=== PATIENT | female | born 1935 | race Caucasian/White ===

== ENCOUNTER 2016-09-29 14:47 | Emergency (ER) | payer MEDICARE, MEDICAID ==
[2016-09-29 15:27] VITALS: BP 152/69
--- NOTE | 2016-10-19 18:09 | EDM.PDOC ---
Scribed by Natalie Herr 10/19/16 [id number] for Tushar Willis MD ED HPI RENAL/ - General Chief Complaint: Genitourinary Problem Stated Complaint: ? UTI Time Seen by Provider: 09/29/16 15:30 Source of Information: Reports: Patient, RN notes reviewed - History of Present Illness INITIAL COMMENTS - FREE TEXT/NARRATIVE: Painful urination x3 days. Complained of chills but no nausea. Denied fever and flank pain. Location: Reports: flank Quality: Reports: ache Severity: moderate - Related Data Allergies/ADRs: Allergies Allergy/AdvReac Type Severity Reaction Status Date / Time cefuroxime Allergy Abdominal Verified 09/29/16 15:48 Pain cephalexin [From Keflex] Allergy Abdominal Verified 09/29/16 15:48 Pain fentanyl Allergy Itching Verified 09/29/16 15:48 Home Meds: Home Meds Linagliptin/Metformin Hcl [Jentadueto 2.5 mg-1000 mg Tab] 1.25 - 500 each PO BEDTIME 03/30/16 [History] Escitalopram [Lexapro] 10 mg PO DAILY 06/19/16 [History] traMADol HCl [Ultram] 50 mg PO ASDIRECTED PRN 06/19/16 [History] Acetaminophen [Non-Aspirin] 325 - 650 mg PO Q6HR PRN 09/13/16 [History] Aspirin [Adult Low Dose Aspirin EC] 81 mg PO DAILY 09/13/16 [History] Clopidogrel [Plavix] 75 mg PO DAILY 09/13/16 [History] Ferrous Sulfate 325 mg PO BID 09/13/16 [History] Lisinopril 5 mg PO DAILY 09/13/16 [History] Metoprolol Succinate [Toprol XL] 75 mg PO DAILY 09/13/16 [History] Pantoprazole [Protonix] 40 mg PO DAILY 09/13/16 [History] Sennosides/Docusate Sodium [Senna Laxative Tablet] 1 tab PO DAILY 09/13/16 [ History] amLODIPine [Norvasc] 10 mg PO DAILY 09/13/16 [History] atorvaSTATin [Lipitor] 20 mg PO BEDTIME 09/13/16 [History] levETIRAcetam [Keppra] 500 mg PO BID 09/13/16 [History] Past Medical History HEENT History: Reports: Impaired vision Cardiovascular History: Reports: CAD, High cholesterol, Hypertension, [place] Gastrointestinal History: Reports: GERD Endocrine/Metabolic History: Reports: Diabetes, type II Hematologic History: Reports: Other (see below) (Left Port Wine Stain) - Past Surgical History HEENT Surgical History: Reports: Cataract surgery Cardiovascular Surgical History: Reports: Carotid stents GI Surgical History: Reports: Appendectomy, Cholecystectomy Female Surgical History: Reports: Hysterectomy Social & Family History - Family History Family Medical History: Noncontributory - Tobacco Use Smoking Status *Q: Never Smoker Used Tobacco, but Quit: Yes Month Tobacco Last Used: 1982 Second Hand Smoke Exposure: No - Caffeine Use Caffeine Use: Reports: Coffee, Tea - Recreational Drug Use Recreational Drug Use: No - Living Situation & Occupation Occupation: retired ED ROS GENERAL - Review of Systems Review Of Systems: ROS reveals no pertinent complaints other than HPI. ED EXAM, RENAL/ - Physical Exam Exam: See Below Exam Limited By: No limitations General Appearance: alert, WD/WN, no apparent distress Head: atraumatic, normocephalic Neck: normal inspection, supple, non-tender, full range of motion Respiratory/Chest: no respiratory distress, lungs clear, normal breath sounds, no accessory muscle use, chest non-tender Cardiovascular: regular rate, rhythm, bradycardia GI/Abdominal: normal bowel sounds, soft, no distention, tender (suprapubic region.). No: guarding, rigid, rebound Back Exam: normal inspection, full range of motion. No: CVA tenderness (L), CVA tenderness (R) Extremities: normal inspection Neurological: alert, oriented, CN II-XII intact, normal cognition, normal gait, no motor/sensory deficits Psychiatric: normal affect, normal mood Skin Exam: Warm, Dry, Intact, Normal color, No rash Course - Vital Signs Last Recorded V/S: Last Vital Signs Temp 36.8 C 09/29/16 15:23 Pulse 59 L 09/29/16 15:23 Resp 20 09/29/16 15:23 BP 152/69 H 09/29/16 15:23 Pulse Ox 100 09/29/16 15:23 - Orders/Labs/Meds Labs: Laboratory Tests 09/29/16 Range/Units 15:16 Urine Color Dark yellow (YELLOW) Urine Appearance Cloudy (CLEAR) Urine pH 5.5 (5.0-9.0) Ur Specific [place] 1.015 (1.005-1.030) Urine Protein 30 H (NEGATIVE) Urine Glucose (UA) Negative (NEGATIVE) Urine Ketones Negative (NEGATIVE) Urine Occult Blood Large H (NEGATIVE) Urine Nitrite Negative (NEGATIVE) Urine Bilirubin Negative (NEGATIVE) Urine Urobilinogen 0.2 (0.2-1.0) mg/dL Ur Leukocyte Esterase Moderate H (NEGATIVE) Urine RBC Packed H /HPF Urine WBC Semi-packed H (0-5/HPF) /HPF Ur Epithelial Cells Rare /HPF Urine Bacteria Moderate H (0-FEW/HPF) /HPF Departure - Departure Time of Disposition: 16:27 Disposition: Home, Self-Care 01 Condition: good Clinical Impression: UTI (urinary tract infection), Pyelonephritis Instructions: Pyelonephritis, Adult, [id number] Referrals: PCP,None [Primary Care Provider] - Forms: ED Department Discharge Additional Instructions: Cipro 500mg. Drink plenty of fluid. Follow up in clinic in 7-10 days for urine recheck. Return to ER if worse at any time. I have read and agree with the documentation that has been completed regarding this visit. By signing this record, I attest that the documentation was completed in my physical presence and is an accurate record of the encounter.
== END 2016-09-29 16:30 | disposition home or self-care (01) ==
LOC: DL.ED 14:47
DX: N12 Tubulo-interstitial nephritis, not specified as acute or chronic (principal); N39.0 Urinary tract infection, site not specified; I25.10 Atherosclerotic heart disease of native coronary artery without angina pectoris; E78.00 Pure hypercholesterolemia, unspecified; I25.2 Old myocardial infarction; I10 Essential (primary) hypertension; K21.9 Gastro-esophageal reflux disease without esophagitis; E11.9 Type 2 diabetes mellitus without complications; Z90.49 Acquired absence of other specified parts of digestive tract; Z90.710 Acquired absence of both cervix and uterus; Z88.8 Allergy status to other drugs, medicaments and biological substances; Z79.82 Long term (current) use of aspirin; Z79.899 Other long term (current) drug therapy
CPT/HCPCS: 81001; 87086; 87088; 87186; 99283; 99284

== ENCOUNTER 2017-08-18 15:58 | Emergency (ER) | payer MEDICAID, MEDICARE, OTHER ==
[2017-08-18] MEDS ORDERED: Nitrofurantoin Monohydrate/Macrocrystalline 100 MG Cap PO ONE (15:59)
[2017-08-18 16:12] VITALS: BP 140/65
--- NOTE | 2017-08-18 16:51 | EDM.PDOC ---
ED HPI GENERAL MEDICAL PROBLEM - General Chief Complaint: Genitourinary Problem Stated Complaint: INFECTION [id number] Time Seen by Provider: 08/18/17 16:39 Source of Information: Reports: Patient, RN, RN Notes Reviewed History Limitations: Reports: No Limitations - History of Present Illness INITIAL COMMENTS - FREE TEXT/NARRATIVE: Patient presents to the ER with complaint of frequency, urgency, burning and incontinence at times.Symptoms began last week on Saturday or . She has hadno fever, chills, nausea, vomiting, diarrhea, chest pain or shortness of breath. Duration: Constant Quality: Reports: Ache Severity: Moderate Improves with: Reports: None Worsens with: Reports: None Associated Symptoms: Reports: No Other Symptoms - Related Data Allergies Allergy/AdvReac Type Severity Reaction Status Date / Time cefuroxime Allergy Abdominal Verified 08/18/17 16:13 Pain cephalexin [From Keflex] Allergy Abdominal Verified 08/18/17 16:13 Pain fentanyl Allergy Itching Verified 08/18/17 16:13 latex Allergy Redness Verified 08/18/17 16:13 peanut Allergy Rash Verified 08/18/17 16:13 Home Meds: Home Meds Escitalopram [Lexapro] 10 mg PO DAILY 06/19/16 [History] Acetaminophen [Non-Aspirin] 325 - 650 mg PO Q6HR PRN 09/13/16 [History] Aspirin [Adult Low Dose Aspirin EC] 81 mg PO DAILY 09/13/16 [History] Clopidogrel [Plavix] 75 mg PO DAILY 09/13/16 [History] Lisinopril 5 mg PO DAILY 09/13/16 [History] Metoprolol Succinate [Toprol XL] 75 mg PO DAILY 09/13/16 [History] Pantoprazole [ProTONIX] 40 mg PO DAILY 09/13/16 [History] amLODIPine [Norvasc] 10 mg PO DAILY 09/13/16 [History] atorvaSTATin [Lipitor] 20 mg PO BEDTIME 09/13/16 [History] Hydrochlorothiazide [Hydrochlorothiazide] 25 mg PO DAILY 08/18/17 [History] metFORMIN HCl [Metformin HCl] 500 mg PO DAILY 08/18/17 [History] Past Medical History HEENT History: Reports: Impaired Vision Other HEENT History: wears glasses Cardiovascular History: Reports: CAD, High Cholesterol, Hypertension, [place] Respiratory History: Reports: None Gastrointestinal History: Reports: GERD Genitourinary History: Reports: None LE[employer]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: 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 Musculoskeletal History: Reports: None Neurological History: Reports: None Psychiatric History: Reports: None Endocrine/Metabolic History: Reports: Diabetes, Type II Hematologic History: Reports: Anemia, Blood Transfusion(s) Immunologic History: Reports: None Oncologic (Cancer) History: Reports: None Dermatologic History: Reports: None - Infectious Disease History Infectious Disease History: Reports: Chicken Pox, Measles, Mumps - Past Surgical History HEENT Surgical History: Reports: Cataract Surgery Cardiovascular Surgical History: Reports: Carotid Stents GI Surgical History: Reports: Appendectomy, Cholecystectomy Female Surgical History: Reports: Hysterectomy Social & Family History - Tobacco Use Smoking Status *Q: Never Smoker Used Tobacco, but Quit: Yes Month Tobacco Last Used: 1982 Second Hand Smoke Exposure: No - Caffeine Use Caffeine Use: Reports: Coffee - Recreational Drug Use Recreational Drug Use: No - Living Situation & Occupation Occupation: Retired ED ROS GENERAL - Review of Systems Review Of Systems: ROS reveals no pertinent complaints other than HPI. ED EXAM, RENAL/ - Physical Exam Exam: See Below Exam Limited By: No Limitations General Appearance: Alert, WD/WN, No Apparent Distress Eye Exam: Bilateral Eye: Normal Inspection Ears: Normal External Exam, Normal Canal, Hearing Grossly Normal, Normal TMs Nose: Normal Inspection, Normal Mucosa, No Blood Throat/Mouth: Other Head: Other (Face has a port wine stain left side of face. Hematoma appearance left upper lip from dionte.) Neck: Normal Inspection, Supple, Non-Tender, Full Range of Motion Respiratory/Chest: No Respiratory Distress, Lungs Clear, Normal Breath Sounds, No Accessory Muscle Use, Chest Non-Tender Cardiovascular: Normal Peripheral Pulses, Regular Rate, Rhythm, No Edema, No Gallop, No JVD, No Murmur, No Rub GI/Abdominal: Normal Bowel Sounds, Soft, Non-Tender, No Organomegaly, No Distention, No Abnormal Bruit, No Mass (Female) Exam: Deferred Rectal (Female) Exam: Deferred Back Exam: Normal Inspection, Full Range of Motion, NT Extremities: Normal Inspection, Normal Range of Motion, Non-Tender, Normal Capillary Refill, No Pedal Edema Neurological: Alert, Oriented, CN II-XII Intact, Normal Cognition, Normal Gait, Normal Reflexes, No Motor/Sensory Deficits Psychiatric: Normal Affect, Normal Mood Skin Exam: Other (see head exam.) Lymphatic: No Adenopathy Course - Vital Signs Last Recorded V/S: Last Vital Signs Temp 98.1 F 08/18/17 16:08 Pulse 66 08/18/17 16:08 Resp 16 08/18/17 16:08 BP 140/65 08/18/17 16:08 Pulse Ox 98 08/18/17 16:08 - Orders/Labs/Meds Orders: Active Orders 24 hr Category Date Time Status CULTURE URINE [RM] Stat Lab 08/18/17 16:25 Received Labs: Laboratory Tests 08/18/17 Range/Units 16:25 Urine Color Yellow (YELLOW) Urine Appearance Slightly cloudy (CLEAR) Urine pH 5.5 (5.0-9.0) Ur Specific [place] 1.010 (1.005-1.030) Urine Protein Negative (NEGATIVE) Urine Glucose (UA) Negative (NEGATIVE) Urine Ketones Negative (NEGATIVE) Urine Occult Blood Trace-lysed H (NEGATIVE) Urine Nitrite Negative (NEGATIVE) Urine Bilirubin Negative (NEGATIVE) Urine Urobilinogen 0.2 (0.2-1.0) mg/dL Ur Leukocyte Esterase Small H (NEGATIVE) Urine RBC 0-5 /HPF Urine WBC 10-20 H (0-5/HPF) /HPF Ur Epithelial Cells Occasional /HPF Urine Bacteria Few (0-FEW/HPF) /HPF Urine Mucus Not seen /LPF Meds: Medications Discontinued Medications Generic Name Dose Route Start Last Admin Trade Name Freq PRN Reason Stop Dose Admin Nitrofurantoin Macrocrystals Confirm 08/18/17 17:14 Macrobid Administered 08/18/17 17:15 Dose 300 mg .ROUTE .STK-MED ONE Departure - Departure Time of Disposition: 17:08 Disposition: Home, Self-Care 01 Condition: Fair Clinical Impression: UTI, Urinary tract infectious disease - Discharge Information Instructions: Urinary Tract Infection, Adult, [id number] Forms: ED Department Discharge Additional Instructions: RX: Macrobid Increase water intake Follow up with your primary care facility next week. - My Orders Last 24 Hours: My Active Orders 08/18/17 16:25 CULTURE URINE [RM] Stat - Assessment/Plan Last 24 Hours: My Active Orders 08/18/17 16:25 CULTURE URINE [RM] Stat
[2017-08-18] MEDS ORDERED: Nitrofurantoin Monohydrate/Macrocrystalline 100 MG Cap ONE (17:14)
== END 2017-08-18 17:32 | disposition home or self-care (01) ==
LOC: DL.ED 15:58
DX: N39.0 Urinary tract infection, site not specified (principal); E78.00 Pure hypercholesterolemia, unspecified; E11.9 Type 2 diabetes mellitus without complications; Z88.1 Allergy status to other antibiotic agents; Z91.040 Latex allergy status; Z91.010 Allergy to peanuts; Z79.82 Long term (current) use of aspirin; Z79.84 Long term (current) use of oral hypoglycemic drugs; Z79.899 Other long term (current) drug therapy
CPT/HCPCS: 81001; 87086; 87088; 87186; 99283; A9270-GY

== ENCOUNTER 2018-10-26 12:53 | Emergency (ER) | payer MEDICARE, SELFPAY ==
[2018-10-26 13:02] VITALS: BP 113/46
[2018-10-26] MEDS ORDERED: Albuterol/Ipratropium 3.0-0.5 MG/3 ML Neb Soln NEB ONE (13:26)
--- NOTE | 2018-10-26 13:43 | EDM.PDOC ---
ED HPI GENERAL MEDICAL PROBLEM - General Chief Complaint: Respiratory Problem Stated Complaint: SICK [id number] Time Seen by Provider: 10/26/18 13:40 Source of Information: Reports: Patient, Family History Limitations: Reports: No Limitations - History of Present Illness INITIAL COMMENTS - FREE TEXT/NARRATIVE: been Dx with pneumonia 3-1st taking levaquin not better still coughing not feeling good, appetite ok, sweating all the time. - Related Data Allergies Allergy/AdvReac Type Severity Reaction Status Date / Time adhesive tape Allergy Rash Verified 10/26/18 12:58 cefuroxime Allergy Abdominal Verified 10/26/18 12:58 Pain celecoxib [From Celebrex] Allergy Swollen Verified 10/26/18 12:58 Tongue cephalexin [From Keflex] Allergy Abdominal Verified 10/26/18 12:58 Pain cetirizine [From Zyrtec] Allergy Abdominal Verified 10/26/18 12:58 Pain fentanyl Allergy Itching Verified 10/26/18 12:58 latex Allergy Redness Verified 10/26/18 12:58 peanut Allergy Rash Verified 10/26/18 12:58 pneumococcal vaccine Allergy Abdominal Verified 10/26/18 12:58 [From Pneumovax 23] Pain rofecoxib [From Vioxx] Allergy Abdominal Verified 10/26/18 12:58 Pain strawberry Allergy Itching Verified 10/26/18 12:58 Home Meds: Home Meds Escitalopram [Lexapro] 10 mg PO DAILY 06/19/16 [History] Acetaminophen [Non-Aspirin] 325 - 650 mg PO Q6HR PRN 09/13/16 [History] Aspirin [Adult Low Dose Aspirin EC] 81 mg PO DAILY 09/13/16 [History] Clopidogrel [Plavix] 75 mg PO DAILY 09/13/16 [History] Metoprolol Succinate [Toprol XL] 75 mg PO DAILY 09/13/16 [History] Pantoprazole [ProTONIX] 40 mg PO ACBREAKFAST 09/13/16 [History] amLODIPine [Norvasc] 10 mg PO DAILY 09/13/16 [History] hydroCHLOROthiazide [Hydrochlorothiazide] 25 mg PO DAILY 08/18/17 [History] metFORMIN HCl [Metformin HCl] 500 mg PO ACBREAKFAST 08/18/17 [History] Lisinopril 20 mg PO DAILY 06/09/18 [History] Loratadine 10 mg PO DAILY PRN 06/09/18 [History] atorvaSTATin [Lipitor] 40 mg PO DAILY 06/09/18 [History] diphenhydrAMINE [Benadryl] 25 mg PO BEDTIME 06/09/18 [History] Levofloxacin 750 mg PO DAILY 10/26/18 [History] Past Medical History HEENT History: Reports: Impaired Vision Other HEENT History: wears glasses Cardiovascular History: Reports: CAD, High Cholesterol, Hypertension, [place] Respiratory History: Reports: None Gastrointestinal History: Reports: GERD Genitourinary History: Reports: None 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: 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: 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 Musculoskeletal History: Reports: None Neurological History: Reports: None Psychiatric History: Reports: None Endocrine/Metabolic History: Reports: Diabetes, Type II Hematologic History: Reports: Anemia, Blood Transfusion(s) Immunologic History: Reports: None Oncologic (Cancer) History: Reports: None Dermatologic History: Reports: None - Infectious Disease History Infectious Disease History: Reports: Chicken Pox, Measles, Mumps - Past Surgical History HEENT Surgical History: Reports: Cataract Surgery Cardiovascular Surgical History: Reports: Carotid Stents GI Surgical History: Reports: Appendectomy, Cholecystectomy Female Surgical History: Reports: Hysterectomy Musculoskeletal Surgical History: Reports: Hip Replacement Social & Family History - Tobacco Use Smoking Status *Q: Former Smoker Used Tobacco, but Quit: Yes Month/Year Tobacco Last Used: 1979 - Caffeine Use Caffeine Use: Reports: Coffee - Recreational Drug Use Recreational Drug Use: No - Living Situation & Occupation Occupation: Retired ED ROS GENERAL - Review of Systems Review Of Systems: ROS reveals no pertinent complaints other than HPI. ED EXAM, GENERAL - Physical Exam Exam: See Below Exam Limited By: No Limitations General Appearance: Alert, WD/WN, Mild Distress, Other (discomfort) Ears: Hearing Grossly Normal Throat/Mouth: Normal Voice, No Airway Compromise Head: Atraumatic Neck: Non-Tender Respiratory/Chest: Decreased Breath Sounds, Rales, Rhonchi Cardiovascular: Regular Rate, Rhythm GI/Abdominal: Soft, Non-Tender Neurological: Alert, Oriented, Normal Cognition, Normal Gait, No Motor/Sensory Deficits Psychiatric: Normal Affect, Normal Mood Skin Exam: Warm, Dry, Normal Color Lymphatic: No Adenopathy Course - Vital Signs Last Recorded V/S: Last Vital Signs Temp 36.6 C 10/26/18 12:57 Pulse 74 10/26/18 13:26 Resp 18 10/26/18 12:57 BP 113/46 L 10/26/18 12:57 Pulse Ox 95 10/26/18 12:57 - Orders/Labs/Meds Orders: Active Orders 24 hr Category Date Time Status RT Aerosol Therapy [RC] ASDIRECTED Care 10/26/18 13:26 Active CULTURE BLOOD [BC] Stat Lab 10/26/18 13:50 Received Labs: Laboratory Tests 10/26/18 10/26/18 10/26/18 Range/Units 13:50 13:50 13:50 WBC 9.0 (5.0-10.0) 10^3/uL RBC 4.34 (4.2-5.4) 10^6/uL Hgb 12.2 (12.0-16.0) g/dL Hct 36.3 L (37.0-47.0) % MCV 83.6 (80-100) fL MCH 28.1 (27.0-34.0) pg MCHC 33.6 (33.0-35.0) g/dL Plt Count 536 H (150-450) 10^3/uL Neut % (Auto) 82.6 H (42.2-75.2) % Lymph % (Auto) 7.2 L (20.5-50.1) % [place]uckolls % (Auto) 6.3 (2-8) % Eos % (Auto) 3.3 H (1.0-3.0) % Baso % (Auto) 0.6 (0.0-1.0) % Sodium 127 L (135-145) mmol/L Potassium 3.3 L (3.6-5.0) mmol/L Chloride 91 L (101-111) mmol/L Carbon Dioxide 23.0 (21.0-31.0) mmol/L Anion Gap 16.3 BUN 18 (7-18) mg/dL Creatinine 1.1 (0.6-1.3) mg/dL Est Cr Clr Drug Dosing 37.02 mL/min Estimated GFR (MDRD) 47 BUN/Creatinine Ratio 16.36 Glucose 153 H (74-105) mg/dL Lactic Acid 1.1 (0.5-2.2) mmol/L Calcium 8.5 (8.4-10.2) mg/dl Total Bilirubin 0.8 (0.2-1.0) mg/dL AST 17 (10-42) IU/L ALT 9 L (10-60) IU/L Alkaline Phosphatase 69 (42-121) IU/L B-Natriuretic Peptide 67 (0-100) pg/ml Total Protein 7.0 (6.7-8.2) g/dl Albumin 3.1 L (3.2-5.5) g/dl Globulin 3.9 Albumin/Globulin Ratio 0.79 Meds: Medications Discontinued Medications Generic Name Dose Route Start Last Admin Trade Name Oz PRN Reason Stop Dose Admin Albuterol/Ipratropium 3 ml 10/26/18 13:26 10/26/18 13:41 Duoneb 3.0-0.5 Mg/3 Ml NEB 10/26/18 13:27 3 ml ONETIME ONE Administration - Re-Assessments/Exams Free Text/Narrative Re-Assessment/Exam: 10/26/18 15:13 results discussed with pt and daughter. pt states feels much better s/p neb and prefers home than admit. Departure - Departure Time of Disposition: 15:14 Disposition: Home, Self-Care 01 Condition: Fair Clinical Impression: Bronchospasm Pneumonia Qualifiers: Pneumonia type: due to unspecified organism Laterality: right Lung location: lower lobe of lung Qualified Code(s): J18.1 - Lobar pneumonia, unspecified organism - Discharge Information Instructions: Community-Acquired Pneumonia, Adult, [id number] Forms: ED Department Discharge Additional Instructions: 1) rest as much as possible 2) don't sleep flat at night 3) drink lots of liquids 4) recheck if there is any change or concern rx given; albuterol 2.5mg solutio tid prn z-danette - My Orders Last 24 Hours: My Active Orders 10/26/18 13:26 RT Aerosol Therapy [RC] ASDIRECTED 10/26/18 13:50 CULTURE BLOOD [BC] Stat - Assessment/Plan Last 24 Hours: My Active Orders 10/26/18 13:26 RT Aerosol Therapy [RC] ASDIRECTED 10/26/18 13:50 CULTURE BLOOD [BC] Stat
[2018-10-26 14:13] LABS: ANION GAP 16.3
== END 2018-10-26 15:19 | disposition home or self-care (01) ==
LOC: DL.ED 12:53
DX: J18.1 Lobar pneumonia, unspecified organism (principal); J98.01 Acute bronchospasm; I10 Essential (primary) hypertension; I25.2 Old myocardial infarction; E11.9 Type 2 diabetes mellitus without complications; Z88.8 Allergy status to other drugs, medicaments and biological substances; Z88.1 Allergy status to other antibiotic agents; Z91.040 Latex allergy status; Z91.010 Allergy to peanuts; Z88.7 Allergy status to serum and vaccine; Z91.018 Allergy to other foods; Z79.82 Long term (current) use of aspirin; Z79.899 Other long term (current) drug therapy; Z87.891 Personal history of nicotine dependence
CPT/HCPCS: 36415; 71045; 80053; 83605; 83880; 85025; 87040; 94640; 99284-25; J7620-GY

== ENCOUNTER 2018-12-13 08:49 | Inpatient (IN) | payer MEDICARE, OTHER ==
[2018-12-13 10:35] LABS: ANION GAP 16.8
--- NOTE | 2018-12-13 11:31 | EDM.PDOC ---
Scribed by Natalie Herr 12/13/18 1048 for Gilma Amaral NP ED HPI GENERAL MEDICAL PROBLEM - General Chief Complaint: Neurological Problem Stated Complaint: CONFUSION [id number] Time Seen by Provider: 12/13/18 09:04 Source of Information: Reports: Patient, Family, RN, RN Notes Reviewed History Limitations: Reports: No Limitations - History of Present Illness INITIAL COMMENTS - FREE TEXT/NARRATIVE: Patient presents to ER with daughters with complaint of vague symptoms. Daughters state the patient has been more confused recently and states vague symptoms of not feeling well. Daughters state patient had a thoracentesis on Saturday--drained a pint off te right lung. She saw Dr. Lau on . Report sodium was low and she states this could be the cause for the confusion. Admits to generalized not feeling well, body aches/weakness. She also admits to chills, cough and urinary symptoms. Denies pain, nausea, vomiting or diarrhea. Daughters are concerned the patient has been falling asleep frequently. Patient is struggling with filling meds recently. She has been off Plavix for 2 weeks for thoracentesis. Onset: Gradual Duration: Constant Location: Reports: Generalized Severity: Mild Improves with: Reports: None Worsens with: Reports: None Associated Symptoms: Reports: No Other Symptoms - Related Data Allergies Allergy/AdvReac Type Severity Reaction Status Date / Time adhesive tape Allergy Rash Verified 12/13/18 09:07 cefuroxime Allergy Abdominal Verified 12/13/18 09:07 Pain celecoxib [From Celebrex] Allergy Swollen Verified 12/13/18 09:07 Tongue cephalexin [From Keflex] Allergy Abdominal Verified 12/13/18 09:07 Pain cetirizine [From Zyrtec] Allergy Abdominal Verified 12/13/18 09:07 Pain fentanyl Allergy Itching Verified 12/13/18 09:07 latex Allergy Redness Verified 12/13/18 09:07 peanut Allergy Rash Verified 12/13/18 09:07 pneumococcal vaccine Allergy Abdominal Verified 12/13/18 09:07 [From Pneumovax 23] Pain rofecoxib [From Vioxx] Allergy Abdominal Verified 12/13/18 09:07 Pain strawberry Allergy Itching Verified 10/26/18 12:58 Home Meds: Home Meds Escitalopram [Lexapro] 10 mg PO DAILY 06/19/16 [History] Acetaminophen [Non-Aspirin] 325 - 650 mg PO Q6HR PRN 09/13/16 [History] Aspirin [Adult Low Dose Aspirin EC] 81 mg PO DAILY 09/13/16 [History] Clopidogrel [Plavix] 75 mg PO DAILY 09/13/16 [History] Metoprolol Succinate [Toprol XL] 50 mg PO DAILY 09/13/16 [History] amLODIPine [Norvasc] 10 mg PO DAILY 09/13/16 [History] metFORMIN HCl [Metformin HCl] 500 mg PO ACBREAKFAST 08/18/17 [History] Lisinopril 20 mg PO DAILY 06/09/18 [History] atorvaSTATin [Lipitor] 40 mg PO DAILY 06/09/18 [History] diphenhydrAMINE [Benadryl] 25 mg PO BEDTIME 06/09/18 [History] Albuterol/Ipratropium [Combivent Respimat] 1 puff INH ASDIRECTED PRN 12/13/18 [ History] Fluticasone Propionate [Flonase Allergy Relief] 1 spray ALISIA BID 12/13/18 [ History] Pantoprazole [ProTONIX] 40 mg PO DAILY 12/13/18 [History] metOLazone [Metolazone] 5 mg PO DAILY 12/13/18 [History] Past Medical History HEENT History: Reports: Impaired Vision Other HEENT History: wears glasses Cardiovascular History: Reports: CAD, High Cholesterol, Hypertension, NE Respiratory History: Reports: None Other Respiratory History: thorencentisis on 12/10/2018 Gastrointestinal History: Reports: GERD Genitourinary History: Reports: None [employer] History: Reports: None Musculoskeletal History: Reports: None Neurological History: Reports: None Psychiatric History: Reports: None Endocrine/Metabolic History: Reports: Diabetes, Type II Hematologic History: Reports: Anemia, Blood Transfusion(s) Immunologic History: Reports: None Oncologic (Cancer) History: Reports: None Dermatologic History: Reports: None - Infectious Disease History Infectious Disease History: Reports: Chicken Pox, Measles, Mumps - Past Surgical History HEENT Surgical History: Reports: Cataract Surgery Cardiovascular Surgical History: Reports: Carotid Stents GI Surgical History: Reports: Appendectomy, Cholecystectomy Female Surgical History: Reports: Hysterectomy Musculoskeletal Surgical History: Reports: Hip Replacement Social & Family History - Tobacco Use Smoking Status *Q: Never Smoker Second Hand Smoke Exposure: No - Caffeine Use Caffeine Use: Reports: Coffee, Tea - Recreational Drug Use Recreational Drug Use: No - Living Situation & Occupation Occupation: Retired ED ROS GENERAL - Review of Systems Review Of Systems: ROS reveals no pertinent complaints other than HPI. - Physical Exam Exam: See Below Exam Limited By: No Limitations General Appearance: Alert, WD/WN, No Apparent Distress Eye Exam: Bilateral Eye: EOMI, Normal Inspection, PERRL Ears: Normal External Exam, Normal Canal, Hearing Grossly Normal, Normal TMs Nose: Normal Inspection, Normal Mucosa, No Blood Throat/Mouth: Normal Inspection, Normal Lips, Normal Teeth, Normal Gums, Normal Oropharynx, Normal Voice, No Airway Compromise Head Exam: Atraumatic, Normocephalic Neck: Normal Inspection, Supple, Non-Tender, Full Range of Motion Respiratory/Chest: Other (Right lung crackles and rhonchi throughout. Left lung clear. ) Cardiovascular: Normal Peripheral Pulses, Regular Rate, Rhythm, No Edema, No Gallop, No JVD, No Murmur, No Rub GI/Abdominal: Normal Bowel Sounds, Soft, Non-Tender, No Organomegaly, No Distention, No Abnormal Bruit, No Mass (Female) Exam: Deferred Rectal (Female) Exam: Deferred Neuro Exam (Abbreviated): Alert, Oriented Back Exam: Normal Inspection, Full Range of Motion, NT Extremities: Other (+2-3 lower pitting extremities/pedal edema. ) Psychiatric: Flat Affect Skin Exam: Warm, Dry, Intact, Normal Color, No Rash, Other (large dionte left side of face. Small erythematous spot on right mid back from thoracentesis. ) Course - Vital Signs Last Recorded V/S: Last Vital Signs Temp 98.2 F 12/13/18 08:52 Pulse 82 12/13/18 08:52 Resp 18 12/13/18 08:52 BP 89/44 L 12/13/18 09:25 Pulse Ox 93 L 12/13/18 08:52 - Orders/Labs/Meds Orders: Active Orders 24 hr Category Date Time Status Chest 2V [CR] Urgent Exams 12/13/18 09:51 Taken Head wo Cont [CT] Urgent Exams 12/13/18 10:45 Taken Labs: Laboratory Tests 12/13/18 12/13/18 12/13/18 Range/Units 08:57 10:10 10:10 WBC 9.5 (5.0-10.0) 10^3/uL RBC 4.48 (4.2-5.4) 10^6/uL Hgb 13.1 (12.0-16.0) g/dL Hct 38.4 (37.0-47.0) % MCV 85.7 (80-100) fL MCH 29.2 (27.0-34.0) pg MCHC 34.1 (33.0-35.0) g/dL Plt Count 552 H (150-450) 10^3/uL Neut % (Auto) 83.0 H (42.2-75.2) % Lymph % (Auto) 5.3 L (20.5-50.1) % [place] % (Auto) 7.4 (2-8) % Eos % (Auto) 3.9 H (1.0-3.0) % Baso % (Auto) 0.4 (0.0-1.0) % Sodium 129 L (135-145) mmol/L Potassium 3.8 (3.6-5.0) mmol/L Chloride 91 L (101-111) mmol/L Carbon Dioxide 25.0 (21.0-31.0) mmol/L Anion Gap 16.8 BUN 23 H (7-18) mg/dL Creatinine 1.0 (0.6-1.3) mg/dL Est Cr Clr Drug Dosing 40.72 mL/min Estimated GFR (MDRD) 53 BUN/Creatinine Ratio 23.00 Glucose 125 H (74-105) mg/dL Calcium 8.5 (8.4-10.2) mg/dl Magnesium 1.5 L (1.8-2.5) mg/dL Total Bilirubin 0.6 (0.2-1.0) mg/dL AST 15 (10-42) IU/L ALT 10 (10-60) IU/L Alkaline Phosphatase 84 (42-121) IU/L B-Natriuretic Peptide 59 (0-100) pg/ml Total Protein 6.8 (6.7-8.2) g/dl Albumin 2.7 L (3.2-5.5) g/dl Globulin 4.1 Albumin/Globulin Ratio 0.66 Urine Color Yellow (YELLOW) Urine Appearance Clear (CLEAR) Urine pH 6.5 (5.0-9.0) Ur Specific [place] 1.015 (1.005-1.030) Urine Protein Negative (NEGATIVE) Urine Glucose (UA) Negative (NEGATIVE) Urine Ketones Negative (NEGATIVE) Urine Occult Blood Negative (NEGATIVE) Urine Nitrite Negative (NEGATIVE) Urine Bilirubin Negative (NEGATIVE) Urine Urobilinogen 0.2 (0.2-1.0) mg/dL Ur Leukocyte Esterase Negative (NEGATIVE) - Radiology Interpretation Free Text/Narrative:: Chest xray: FINDINGS: Lungs: There is right basilar airspace disease. This could represent pneumonia or aspiration pneumonitis. The lungs are hyperinflated with architectural changes suggesting underlying COPD. Pleural space: There is a moderate size right pleural effusion. No pneumothorax. No left pleural effusion. Heart/Mediastinum: There is a hiatal hernia. Bones/joints: No acute osseous abnormality. IMPRESSION: 1. No pneumothorax after thoracentesis. 2. Moderate size right pleural effusion. 3. Right basilar airspace disease. Thank you for allowing us to participate in the care of your patient. Dictated and Authenticated by: Karsten Torres MD 12/13/2018 11:00 AM Central Time ([place] & [place]) Head CT wo contrast: New areas of ischemic infarct in the Left Thalamus, Right parietal lobe, and left occiputal lobe, new from CT Jun 2016 and MRI February 2017. No blood noted. See rad report - Re-Assessments/Exams Free Text/Narrative Re-Assessment/Exam: 12/13/18 10:58 Discussed patient case with Dr. Fox who agreed to accept the patient for inpatient. Departure - Departure Time of Disposition: 11:28 Disposition: Admitted As Inpatient 65 Condition: Fair Clinical Impression: Ischemic stroke, Hypomagnesemia, Recurrent right pleural effusion Diabetes mellitus Qualifiers: Diabetes mellitus type: type 2 Diabetes mellitus nursing home insulin use: without nursing home use Diabetes mellitus complication status: without complication Qualified Code(s): E11.9 - Type 2 diabetes mellitus without complications Altered mental status Qualifiers: Altered mental status type: unspecified Qualified Code(s): R41.82 - Altered mental status, unspecified Pneumonia Qualifiers: Pneumonia type: due to unspecified organism Laterality: right Lung location: lower lobe of lung Qualified Code(s): J18.1 - Lobar pneumonia, unspecified organism - Discharge Information *PRESCRIPTION DRUG MONITORING PROGRAM REVIEWED*: No *COPY OF PRESCRIPTION DRUG MONITORING REPORT IN PATIENT TESFAYE: No - My Orders Last 24 Hours: My Active Orders 12/13/18 09:51 Chest 2V [CR] Urgent 12/13/18 10:45 Head wo Cont [CT] Urgent - Assessment/Plan Last 24 Hours: My Active Orders 12/13/18 09:51 Chest 2V [CR] Urgent 12/13/18 10:45 Head wo Cont [CT] Urgent I have read and agree with the documentation that has been completed regarding this visit. By signing this record, I attest that the documentation was completed in my physical presence and is an accurate record of the encounter.
--- NOTE | 2018-12-13 12:06 | CT ---
Clinical history: 83-year-old female emergency department with altered mental status. MRI of the brain 04 March 2017 reportedly "stable T2 hyperintensity round lesion medial temporal lobe on the right" unchanged since July 2016 and September 2016. Scan technique: Volume acquisition of data emergency unenhanced CT scan of the head and brain obtained while the patient was lying supine on the Siemens multi slice scanner [place], [place]. All data archived in the PACS system for storage, reformatting axial/sagittal/coronal planes and study. Interpretation: Abnormal. Multiple new intracranial lesions. Multi-infarct ischemic disease a differential consideration but these most likely represent metastatic disease (report of "effusions and right chest lesion " on CXR/PET scan, one week ago). 1. Asymmetric large new right cerebral abnormality involving most of the temporal lobe (right cerebral hemisphere) without appreciable edema or mass effect on the underlying ventricle/surrounding cerebral sulci. 2. Large new lesion basal ganglia (thalamus) deep in the left cerebral hemisphere. 3. A third large new abnormality occipital lobe, posteriorly left cerebral hemisphere (smaller lesion right occipital lobe). 4. Smaller discrete lesions (x2) asymmetrically involving the cerebellum on the right. 5. Uniformly thick bony calvarium and symmetric clear pneumatization of the mastoid/paranasal sinuses. No skull fracture, pathologic skeletal lesion, underlying brain contusion or extracerebral/intracranial epidural/subdural hematoma. 5. No sign of acute intracerebral/intraventricular/subarachnoid bleed. 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
--- NOTE | 2018-12-13 12:37 | PCM.HP ---
H&P History of Present Illness - General Date of Service: 12/13/18 Source of Information: Patient, Family, Old Records - History of Present Illness Initial Comments - Free Text/Narative: This is an 83-year-old female who presented to ED of [place] with complain of increased confusion and weakness. As per daughter this is going on for 3 days , she was seen on Saturday by PMD Dr. Cindy Zarco and labs were done and she got the lab reports on and gave her lasix for increased fluid retention and mild Hyponatremia with low potassium, was given potassium supplement and advised if the confusion gets worse then take to ED and for that reason she came to ED as confusion is progressively worsening. Pt has past medical history of Hypertension,Hyperlipidemia,Status post cholecystectomy , Hysterectomy,Type 2 diabetes, CAD with Stent follwed by Dr. Dunbar. Pt also has a lung nodule and for that reason she had PET scan and also had Biopsy of the lung nodule at [facility] ( story of lung nodule, PET scan are obtained from Radiologist at [facility]) and lung Nodule Biopsy from the daughter [ I have tried to look into care everywhere at [facility] and [facility] and I could find any report of PET or Lung Nodule). Today ( 12/13) after presentation pt had CT of head " showed Multiple new Intracranial lesions, Multi-Infract Ischemic disease a differential consideration but these most likely represent Metastatic Disease ( Temporal lobe , Basal ganglia ( Thalamus), Occipital lobe, Cerebellum] I have discussed the finding with daughters in the room and they will make decision about staying here or get transfer to [facility]. Onset of Symptoms: Reports: Gradual Duration of Symptoms: Reports: Day(s): Associated Symptoms: Reports: Confusion Left Posterior Back Pain Score (Numeric/FACES): 5 - Related Data Allergies/Adverse Reactions: Allergies Allergy/AdvReac Type Severity Reaction Status Date / Time adhesive tape Allergy Rash Verified 12/13/18 12:15 cefuroxime Allergy Abdominal Verified 12/13/18 12:15 Pain celecoxib [From Celebrex] Allergy Swollen Verified 12/13/18 12:15 Tongue cephalexin [From Keflex] Allergy Abdominal Verified 12/13/18 12:15 Pain cetirizine [From Zyrtec] Allergy Abdominal Verified 12/13/18 12:15 Pain fentanyl Allergy Itching Verified 12/13/18 12:15 latex Allergy Redness Verified 12/13/18 12:15 peanut Allergy Rash Verified 12/13/18 12:15 pneumococcal vaccine Allergy Abdominal Verified 12/13/18 12:15 [From Pneumovax 23] Pain rofecoxib [From Vioxx] Allergy Abdominal Verified 12/13/18 12:15 Pain strawberry Allergy Itching Verified 12/13/18 12:15 Home Medications: Home Meds Escitalopram [Lexapro] 10 mg PO DAILY 06/19/16 [History] Acetaminophen [Non-Aspirin] 325 - 650 mg PO Q6HR PRN 09/13/16 [History] Aspirin [Adult Low Dose Aspirin EC] 81 mg PO DAILY 09/13/16 [History] Clopidogrel [Plavix] 75 mg PO DAILY 09/13/16 [History] Metoprolol Succinate [Toprol XL] 50 mg PO DAILY 09/13/16 [History] amLODIPine [Norvasc] 10 mg PO DAILY 09/13/16 [History] metFORMIN HCl [Metformin HCl] 500 mg PO ACBREAKFAST 08/18/17 [History] Lisinopril 20 mg PO DAILY 06/09/18 [History] atorvaSTATin [Lipitor] 40 mg PO BEDTIME 06/09/18 [History] diphenhydrAMINE [Benadryl] 25 mg PO BEDTIME 06/09/18 [History] Albuterol/Ipratropium [Combivent Respimat] 1 puff INH ASDIRECTED PRN 12/13/18 [ History] Fluticasone Propionate [Flonase Allergy Relief] 1 spray ALISIA BID 12/13/18 [ History] Pantoprazole [ProTONIX] 40 mg PO DAILY 12/13/18 [History] metOLazone [Metolazone] 5 mg PO DAILY 12/13/18 [History] Past Medical History HEENT History: Reports: Impaired Vision Other HEENT History: wears glasses Cardiovascular History: Reports: CAD, High Cholesterol, Hypertension, [place] Respiratory History: Reports: None Other Respiratory History: thorencentisis on 12/10/2018 Gastrointestinal History: Reports: GERD Genitourinary History: Reports: None PRINT OPERATOR History: Reports: None Musculoskeletal History: Reports: None Neurological History: Reports: None Psychiatric History: Reports: None Endocrine/Metabolic History: Reports: Diabetes, Type II Hematologic History: Reports: Anemia, Blood Transfusion(s) Immunologic History: Reports: None Oncologic (Cancer) History: Reports: None Dermatologic History: Reports: None - Infectious Disease History Infectious Disease History: Reports: Chicken Pox, Measles, Mumps - Past Surgical History HEENT Surgical History: Reports: Cataract Surgery Cardiovascular Surgical History: Reports: Carotid Stents GI Surgical History: Reports: Appendectomy, Cholecystectomy Female Surgical History: Reports: Hysterectomy Musculoskeletal Surgical History: Reports: Hip Replacement Social & Family History - Tobacco Use Smoking Status *Q: Never Smoker Second Hand Smoke Exposure: No - Caffeine Use Caffeine Use: Reports: Coffee, Tea - Recreational Drug Use Recreational Drug Use: No - Living Situation & Occupation Occupation: Retired H&P Review of Systems - Review of Systems: Review Of Systems: See Below General: Reports: Weakness, Fatigue. Denies: Fever, Chills, Malaise HEENT: Denies: Dysphasia, Headaches, Sinus Congestion, Visual Changes Pulmonary: Denies: Shortness of Breath, Wheezing, Cough, Sputum Cardiovascular: Reports: Edema. Denies: Chest Pain, Lightheadedness, Claudication Gastrointestinal: Denies: Abdominal Pain, Diarrhea, Difficulty Swallowing, Nausea, Vomiting Genitourinary: Denies: Dysuria, Burning, Urgency Musculoskeletal: Denies: Neck Pain, Shoulder Pain, Joint Pain, Muscle Stiffness Skin: Denies: Cyanosis, Jaundice, Dryness, Bruising Psychiatric: Reports: Confusion Neurological: Reports: Confusion, Weakness Hematologic/Lymphatic: Reports: No Symptoms Immunologic: Reports: No Symptoms Exam - Exam Exam: See Below - Vital Signs Vital Signs: Last Vital Signs Temp 36.8 C 12/13/18 08:52 Pulse 82 12/13/18 08:52 Resp 18 12/13/18 08:52 BP 89/44 L 12/13/18 09:25 Pulse Ox 93 L 12/13/18 08:52 Weight: 79.832 kg - Exam Quality Assessment: DVT Prophylaxis. No: Supplemental Oxygen, Urinary Catheter General: Alert, Oriented, Cooperative HEENT: Conjunctiva Clear, EOMI, Mucosa Moist & Graham, Pupils Equal, Pupils Reactive Neck: Supple. No: Lymphadenopathy, Thyromegaly Lungs: Clear to Auscultation, Normal Respiratory Effort Cardiovascular: Regular Rate, Regular Rhythm, Systolic Murmur GI/Abdominal Exam: Normal Bowel Sounds, Non-Tender, No Distention, No Mass. No : Guarding, Rebound (Female) Exam: Deferred Rectal (Female) Exam: Deferred Back Exam: Normal Inspection, Full Range of Motion Extremities: Normal Inspection, Pedal Edema Skin: Warm, Dry, Intact Neurological: Cranial Nerves Intact, Reflexes Equal Bilateral Neuro Extensive - Mental Status: Alert, Oriented x3, Normal Mood/Affect, Normal Cognition, Memory Intact Neuro Extensive - Motor, Sensory, Reflexes: CN II-XII Intact, Normal Reflexes Psychiatric: Alert, Normal Affect, Normal Mood - Patient Data Lab Results Last 24 hrs: Laboratory Results - last 24 hr 12/13/18 12/13/18 12/13/18 Range/Units 08:57 10:10 10:10 WBC 9.5 (5.0-10.0) 10^3/uL RBC 4.48 (4.2-5.4) 10^6/uL Hgb 13.1 (12.0-16.0) g/dL Hct 38.4 (37.0-47.0) % MCV 85.7 (80-100) fL MCH 29.2 (27.0-34.0) pg MCHC 34.1 (33.0-35.0) g/dL Plt Count 552 H (150-450) 10^3/uL Neut % (Auto) 83.0 H (42.2-75.2) % Lymph % (Auto) 5.3 L (20.5-50.1) % [place] % (Auto) 7.4 (2-8) % Eos % (Auto) 3.9 H (1.0-3.0) % Baso % (Auto) 0.4 (0.0-1.0) % Sodium 129 L (135-145) mmol/L Potassium 3.8 (3.6-5.0) mmol/L Chloride 91 L (101-111) mmol/L Carbon Dioxide 25.0 (21.0-31.0) mmol/L Anion Gap 16.8 BUN 23 H (7-18) mg/dL Creatinine 1.0 (0.6-1.3) mg/dL Est Cr Clr Drug Dosing 40.72 mL/min Estimated GFR (MDRD) 53 BUN/Creatinine Ratio 23.00 Glucose 125 H (74-105) mg/dL Calcium 8.5 (8.4-10.2) mg/dl Magnesium 1.5 L (1.8-2.5) mg/dL Total Bilirubin 0.6 (0.2-1.0) mg/dL AST 15 (10-42) IU/L ALT 10 (10-60) IU/L Alkaline Phosphatase 84 (42-121) IU/L B-Natriuretic Peptide 59 (0-100) pg/ml Total Protein 6.8 (6.7-8.2) g/dl Albumin 2.7 L (3.2-5.5) g/dl Globulin 4.1 Albumin/Globulin Ratio 0.66 Urine Color Yellow (YELLOW) Urine Appearance Clear (CLEAR) Urine pH 6.5 (5.0-9.0) Ur Specific [place] 1.015 (1.005-1.030) Urine Protein Negative (NEGATIVE) Urine Glucose (UA) Negative (NEGATIVE) Urine Ketones Negative (NEGATIVE) Urine Occult Blood Negative (NEGATIVE) Urine Nitrite Negative (NEGATIVE) Urine Bilirubin Negative (NEGATIVE) Urine Urobilinogen 0.2 (0.2-1.0) mg/dL Ur Leukocyte Esterase Negative (NEGATIVE) Result Diagrams: 12/13/18 10:10 12/13/18 10:10 Ryne Results Last 24 hrs: Microbiology 12/13/18 10:14 Influenza Type A Antigen Screen - Final Nasal, Unspecified NEGATIVE INFLUENZA A VIRUS AG Influenza Type B Antigen Screen - Final NEGATIVE INFLUENZA B VIRUS AG - Problem List (1) Altered mental status SNOMED Code(s): 089352374 ICD Code: R41.82 - ALTERED MENTAL STATUS, UNSPECIFIED Status: Acute Current Visit: No Qualifiers: Altered mental status type: unspecified Qualified Code(s): R41.82 - Altered mental status, unspecified (2) Diabetes mellitus SNOMED Code(s): 51385347 ICD Code: E11.9 - TYPE 2 DIABETES MELLITUS WITHOUT COMPLICATIONS Status: Acute Current Visit: No Qualifiers: Diabetes mellitus type: type 2 Diabetes mellitus assisted insulin use: without assisted use Diabetes mellitus complication status: without complication Qualified Code(s): E11.9 - Type 2 diabetes mellitus without complications (3) Pneumonia SNOMED Code(s): 232033003 ICD Code: J18.9 - PNEUMONIA, UNSPECIFIED ORGANISM Status: Acute Current Visit: No Qualifiers: Pneumonia type: due to unspecified organism Laterality: right Lung location: lower lobe of lung Qualified Code(s): J18.1 - Lobar pneumonia, unspecified organism Problem List Initiated/Reviewed/Updated: Yes Orders Last 24hrs: Active Orders 24 hr Category Date Time Status Chest 2V [CR] Urgent Exams 12/13/18 09:51 Taken Assessment/Plan Comment:: This is an 83-year-old female who presented to ED of [place] with complain of increased confusion and weakness. As per daughter this is going on for 3 days , she was seen on Saturday by PMD Dr. Cindy Zarco and labs were done and she got the lab reports on and gave her lasix for increased fluid retention and mild Hyponatremia with low potassium, was given potassium supplement and advised if the confusion gets worse then take to ED and for that reason she came to ED as confusion is progressively worsening. Pt has past medical history of Hypertension,Hyperlipidemia,Status post cholecystectomy , Hysterectomy,Type 2 diabetes, CAD with Stent follwed by Dr. Dunbar. Pt also has a lung nodule and for that reason she had PET scan and also had Biopsy of the lung nodule at [facility] ( story of lung nodule, PET scan are obtained from Radiologist at [facility]) and lung Nodule Biopsy from the daughter [ I have tried to look into care everywhere at [facility] and [facility] and I could find any report of PET or Lung Nodule). Today ( 12/13) after presentation pt had CT of head " showed Multiple new Intracranial lesions, Multi-Infract Ischemic disease a differential consideration but these most likely represent Metastatic Disease ( Temporal lobe , Basal ganglia ( Thalamus), Occipital lobe, Cerebellum] I have discussed the finding with daughters in the room and they will make decision about staying here or get transfer to [facility] Impression and Plan: 1. 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 Hypertension: will continue home medication lisinopril and Metoprolol 3. Hyponatremia: It's mild and likely from lung Nodule and metastatic brain lesion and medication ( Metolazone) -Will check Urine sodium, urine and serum osmolality and uric acid -will not need 3% saline or oral salt tablet now, but if labs shows SIADH then will place her on Fluid restriction -Will stop Metolazone [ was at 5 mg daily] 4. Hyperlipidemia: Continue statin 5. Rt basilar air space disease: will emperically treat with IV Ceftriaxone and Azithromycin 6. New Multiple Metastatic Brain lesion: will transfer if family wants for evaluation by Oncology 7. Hypomagnesemia: Will give Magnesium sulfate 2 gm IV X 1 dose and recheck in AM 7. Code Status: I discussed with pt about Code status and wants to be: DNR/DNI
[2018-12-13] MEDS ORDERED: Docusate Sodium 100 MG Cap PO PRN (13:07)
[2018-12-13] MEDS ORDERED: Acetaminophen 325 MG Tab PO PRN (13:07)
[2018-12-13] MEDS ORDERED: Non-Formulary Medication 1 Each (Albuterol/Ipratropium [Combivent Respimat] 1 PUFF) INH PRN (13:12)
[2018-12-13] MEDS ORDERED: cefTRIAXone 2 GM in Sodium Chloride 0.9% 100 ML IV SCH (13:30)
[2018-12-13] MEDS ORDERED: Azithromycin 500 MG in Sodium Chloride 0.9% 250 ML IV SCH (14:00)
[2018-12-13] MEDS: Pantoprazole 40 MG Tab.CR PO SCH (14:00)
[2018-12-13] MEDS ORDERED: metFORMIN 500 MG Tab PO ONE (14:00)
[2018-12-13] MEDS: Clopidogrel 75 MG Tab PO SCH (14:01)
[2018-12-13] MEDS: Heparin Sodium 5,000 Units/ML Vial SUBCUT SCH (14:01)
[2018-12-13] MEDS: Escitalopram 10 MG Tab PO SCH (14:02)
[2018-12-13] MEDS: Aspirin 81 MG Tab.EC PO SCH (14:02)
[2018-12-13] MEDS: Metoprolol Succinate 50 MG Tab.ER PO SCH (14:07)
[2018-12-13] MEDS: Lisinopril 20 MG Tab PO SCH (14:07)
[2018-12-13] MEDS: amLODIPine 5 MG Tab PO SCH (14:07)
[2018-12-13] MEDS ORDERED: Magnesium Sulfate/Water 2 GM in Premix Bag 1 BAG IV ONE (14:48)
[2018-12-13] MEDS: IPRATROPIUM INH PRN (16:37)
[2018-12-13] MEDS: ALBUTEROL INH PRN (16:37)
[2018-12-13] MEDS ORDERED: diphenhydrAMINE 25 MG Tab PO SCH (21:00)
[2018-12-14] MEDS ORDERED: metFORMIN 500 MG Tab PO SCH ×2 (06:00→08:00)
[2018-12-14 06:53] LABS: ANION GAP 16.8
[2018-12-14] MEDS: BROVANA 15 MCG/2 ML NEB SCH ×2 (07:25→08:13)
[2018-12-14] MEDS: Heparin Sodium 5,000 Units/ML Vial SUBCUT SCH ×2 (07:25→07:59)
[2018-12-14] MEDS: Budesonide 0.5 MG/2 ML Neb Susp NEB SCH ×2 (07:25→08:13)
[2018-12-14] MEDS: Fluticasone Propionate Nasal Spray 16 GM Bottle NAS SCH ×2 (07:25→08:38)
[2018-12-14] MEDS: Pantoprazole 40 MG Tab.CR PO SCH (08:00)
[2018-12-14 08:10] VITALS: BP 99/46
[2018-12-14] MEDS: Metoprolol Succinate 50 MG Tab.ER PO SCH (08:34)
[2018-12-14] MEDS: Aspirin 81 MG Tab.EC PO SCH (08:35)
[2018-12-14] MEDS: Escitalopram 10 MG Tab PO SCH (08:35)
[2018-12-14] MEDS: Lisinopril 20 MG Tab PO SCH (08:35)
[2018-12-14] MEDS: Clopidogrel 75 MG Tab PO SCH (08:35)
[2018-12-14] MEDS: amLODIPine 5 MG Tab PO SCH (08:35)
[2018-12-14] MEDS: IPRATROPIUM INH PRN (08:39)
[2018-12-14] MEDS: ALBUTEROL INH PRN (08:39)
--- NOTE | 2018-12-14 10:23 | PCM.DCSUM1 ---
Discharge Summary - Hospital Course Free Text/Narrative:: This is an 83-year-old female who presented to ED of [place] with complain of increased confusion and weakness. As per daughter this is going on for 3 days , she was seen on Saturday by PMD Dr. Cindy Zarco and labs were done and she got the lab reports on and gave her lasix for increased fluid retention and mild Hyponatremia with low potassium, was given potassium supplement and advised if the confusion gets worse then take to ED and for that reason she came to ED as confusion is progressively worsening. Pt has past medical history of Hypertension,Hyperlipidemia,Status post cholecystectomy , Hysterectomy,Type 2 diabetes, CAD with Stent follwed by Dr. Dunbar. Pt also has a lung nodule and for that reason she had PET scan and also had Biopsy of the lung nodule at [place] ( story of lung nodule, PET scan are obtained from Radiologist at [facility]) and lung Nodule Biopsy from the daughter [ I have tried to look into care everywhere at [place] and [facility] and I could find any report of PET or Lung Nodule). Today ( 12/13) after presentation pt had CT of head " showed Multiple new Intracranial lesions, Multi-Infract Ischemic disease a differential consideration but these most likely represent Metastatic Disease ( Temporal lobe , Basal ganglia ( Thalamus), Occipital lobe, Cerebellum] I have discussed the finding with daughters in the room and they will make decision about staying here or get transfer to [facility]. she was given IV Abx ceftriaxone and Azithromycin and her magnesium was also low and replaced with IV magnesium. she will be going home today and follow with her tie knitter helper at [facility] and discussed about the CT finding and also discuss about lung biopsy report. She is advised to Follow with PMD and also check labs for magnesium, Phosphorus and potassium regularly. She will also need to established with with Oncology. Diagnosis: Stroke: No - Discharge Data Discharge Date: 12/14/18 Discharge Disposition: Home, Self-Care 01 Condition: Good - Discharge Diagnosis/Problem(s) (1) Altered mental status SNOMED Code(s): 033448096 ICD Code: R41.82 - ALTERED MENTAL STATUS, UNSPECIFIED Status: Acute Current Visit: No Qualifiers: Altered mental status type: unspecified Qualified Code(s): R41.82 - Altered mental status, unspecified (2) Diabetes mellitus SNOMED Code(s): 88116799 ICD Code: E11.9 - TYPE 2 DIABETES MELLITUS WITHOUT COMPLICATIONS Status: Acute Current Visit: No Qualifiers: Diabetes mellitus type: type 2 Diabetes mellitus snf insulin use: without snf use Diabetes mellitus complication status: without complication Qualified Code(s): E11.9 - Type 2 diabetes mellitus without complications (3) Pneumonia SNOMED Code(s): 857796600 ICD Code: J18.9 - PNEUMONIA, UNSPECIFIED ORGANISM Status: Acute Current Visit: No Qualifiers: Pneumonia type: due to unspecified organism Laterality: right Lung location: lower lobe of lung Qualified Code(s): J18.1 - Lobar pneumonia, unspecified organism - Patient Instructions Diet: Regular Diet as Tolerated Activity: As Tolerated Showering/Bathing: May Shower Notify Provider of: Fever, Nausea and/or Vomiting Other/Special Instructions: on ( 12/13) she presented to ER with confusion and weakness and after presentation pt had CT of head " showed Multiple new Intracranial lesions, Multi-Infract Ischemic disease a differential consideration but these most likely represent Metastatic Disease ( Temporal lobe , Basal ganglia ( Thalamus), Occipital lobe, Cerebellum]. I have discussed the finding with daughters and pt in the room . she was given IV Abx ceftriaxone and Azithromycin for CXR finding of Rt Lower lobe opacity. Her magnesium was also low and replaced with IV magnesium. she will be going home today ( 12/14) and follow with her tie knitter helper at [facility] and discussed about the CT finding and also discuss about lung biopsy report. She is advised to Follow with PMD and also check labs for magnesium, Phosphorus and potassium regularly. She will also need to established with with Oncology. She is advised to check weight daily and if there is weight gain then advised to report to PMD for adjustment of Diuretics Dose. - Discharge Plan *PRESCRIPTION DRUG MONITORING PROGRAM REVIEWED*: No *COPY OF PRESCRIPTION DRUG MONITORING REPORT IN PATIENT TESFAYE: No Prescriptions/Med Rec: Azithromycin [Zithromax] 250 mg PO DAILY #5 tab Furosemide [Lasix] 40 mg PO DAILY #30 tablet Home Medications: Home Meds Escitalopram [Lexapro] 10 mg PO DAILY 06/19/16 [History] Acetaminophen [Non-Aspirin] 325 - 650 mg PO Q6HR PRN 09/13/16 [History] Aspirin [Adult Low Dose Aspirin EC] 81 mg PO DAILY 09/13/16 [History] Clopidogrel [Plavix] 75 mg PO DAILY 09/13/16 [History] Metoprolol Succinate [Toprol XL] 50 mg PO DAILY 09/13/16 [History] amLODIPine [Norvasc] 10 mg PO DAILY 09/13/16 [History] metFORMIN HCl [Metformin HCl] 500 mg PO ACBREAKFAST 08/18/17 [History] Lisinopril 20 mg PO DAILY 06/09/18 [History] atorvaSTATin [Lipitor] 40 mg PO BEDTIME 06/09/18 [History] diphenhydrAMINE [Benadryl] 25 mg PO BEDTIME 06/09/18 [History] Albuterol/Ipratropium [Combivent Respimat] 1 puff INH BID PRN 12/13/18 [History] Arformoterol [Brovana] 2 ml INH BID 12/13/18 [History] Budesonide [Pulmicort] 0.5 mg IH BID 12/13/18 [History] Fluticasone Propionate [Flonase Allergy Relief] 1 spray ALISIA BID 12/13/18 [ History] Pantoprazole [ProTONIX] 40 mg PO DAILY 12/13/18 [History] Azithromycin [Zithromax] 250 mg PO DAILY #5 tab 12/14/18 [Rx] Furosemide [Lasix] 40 mg PO DAILY #30 tablet 12/14/18 [Rx] Patient Handouts: Furosemide tablets, Weakness, [id number], Potassium phosphate; Sodium Phosphate oral tablet, Metastatic Brain Tumor, Adult Referrals: Carolee Lau MD [Primary Care Provider] - - Discharge Summary/Plan Comment DC Time >30 min.: Yes Discharge Summary/Plan Comment: This is an 83-year-old female who presented to ED of [place] with complain of increased confusion and weakness. As per daughter this is going on for 3 days , she was seen on Saturday by PMD Dr. Cindy Zarco and labs were done and she got the lab reports on and gave her lasix for increased fluid retention and mild Hyponatremia with low potassium, was given potassium supplement and advised if the confusion gets worse then take to ED and for that reason she came to ED as confusion is progressively worsening. Pt has past medical history of Hypertension,Hyperlipidemia,Status post cholecystectomy , Hysterectomy,Type 2 diabetes, CAD with Stent follwed by Dr. Dunbar. Pt also has a lung nodule and for that reason she had PET scan and also had Biopsy of the lung nodule at [place] ( story of lung nodule, PET scan are obtained from Radiologist at [facility]) and lung Nodule Biopsy from the daughter [ I have tried to look into care everywhere at [place] and [facility] and I could find any report of PET or Lung Nodule). Today ( 12/13) after presentation pt had CT of head " showed Multiple new Intracranial lesions, Multi-Infract Ischemic disease a differential consideration but these most likely represent Metastatic Disease ( Temporal lobe , Basal ganglia ( Thalamus), Occipital lobe, Cerebellum] I have discussed the finding with daughters in the room and transfer to [facility] but they decided to stay and will follow with Pulmologist at [place] and first wanted to review the pathology report and after that will decide to have follow up with Oncology Impression and Plan: 1. Weakness and Confusion: This is not likely from electrolyte abnormality and likely from Metastatic disease -Pt has new multiple Metastatic lesion noted in head CT, I have discussed with pt and the family -CXR showed Rt basilar air space disease and will continue emperic abx treatement with Azithromycin for 5 more days 2. Hypertension: will continue home medication lisinopril and Metoprolol 3. Hyponatremia: It's mild and likely from lung Nodule and metastatic brain lesion and medication ( Metolazone) -Will check Urine sodium, urine and serum osmolality and uric acid -will not need 3% saline or oral salt tablet now, but if labs shows SIADH then will place her on Fluid restriction -Will stop Metolazone [ was at 5 mg daily- stopped for Hyponatremia] 4. Hyperlipidemia: Continue statin 5. Rt basilar air space disease: will emperically treat with Azithromycin for 5 more days 6. New Multiple Metastatic Brain lesion: Jadon evaluation by Oncology 7. Hypomagnesemia: Has received Magnesium sulfate 2 gm IV X 1 dose and recheck magnesium is acceptable 8. Edema of Extremities: Will start her on lasix 40 mg daily , advise to check weight daily and follow with PMD - General Info Date of Service: 12/14/18 Admission Dx/Problem (Free Text: Admitted with weakness and confusion Functional Status: Reports: Pain Controlled, Tolerating Diet, Ambulating - Review of Systems General: Reports: Weakness, Appetite (acceptable). Denies: Fever, Chills HEENT: Denies: Headaches, Sinus Congestion, Sore Throat, Visual Changes Pulmonary: Denies: Shortness of Breath, Cough, Wheezing Cardiovascular: Denies: Chest Pain, Dyspnea on Exertion, Lightheadedness Gastrointestinal: Denies: Abdominal Pain, Difficulty Swallowing, Nausea, Vomiting Genitourinary: Denies: Dysuria, Burning, Urgency Musculoskeletal: Reports: Joint Swelling. Denies: Neck Pain, Shoulder Pain Skin: Denies: Cyanosis, Jaundice, Bruising, Pruritis, Rash Neurological: Reports: Weakness. Denies: Dizziness, Headache, Tremors Psychiatric: Reports: Confusion - Patient Data Vitals - Most Recent: Last Vital Signs Temp 36.7 C 12/14/18 08:09 Pulse 93 12/14/18 08:34 Resp 20 12/14/18 08:09 BP 99/46 L 12/14/18 08:35 Pulse Ox 96 12/14/18 08:09 Weight - Most Recent: 79.832 kg I&O - Last 24 hours: Intake & Output 12/13/18 12/14/18 12/14/18 22:59 06:59 14:59 Intake Total 775 520 Output Total 300 Balance 475 520 Lab Results - Last 24 hrs: Laboratory Results - last 24 hr 12/13/18 12/14/18 12/14/18 Range/Units 10:10 06:08 06:08 WBC 8.9 (5.0-10.0) 10^3/uL RBC 4.18 L (4.2-5.4) 10^6/uL Hgb 12.0 (12.0-16.0) g/dL Hct 36.1 L (37.0-47.0) % MCV 86.4 (80-100) fL MCH 28.7 (27.0-34.0) pg MCHC 33.2 (33.0-35.0) g/dL Plt Count 500 H (150-450) 10^3/uL Neut % (Auto) 84.3 H (42.2-75.2) % Lymph % (Auto) 4.6 L (20.5-50.1) % [place] % (Auto) 7.3 (2-8) % Eos % (Auto) 3.5 H (1.0-3.0) % Baso % (Auto) 0.3 (0.0-1.0) % Sodium 129 L 130 L (135-145) mmol/L Potassium 3.8 3.8 (3.6-5.0) mmol/L Chloride 91 L 92 L (101-111) mmol/L Carbon Dioxide 25.0 25.0 (21.0-31.0) mmol/L [place] 16.8 16.8 BUN 23 H 19 H (7-18) mg/dL Creatinine 1.0 0.9 (0.6-1.3) mg/dL Est Cr Clr Drug Dosing 40.72 45.25 mL/min Estimated GFR (MDRD) 53 60 BUN/Creatinine Ratio 23.00 Glucose 125 H 137 H (74-105) mg/dL Calcium 8.5 8.5 (8.4-10.2) mg/dl Magnesium 1.5 L 1.8 (1.8-2.5) mg/dL Total Bilirubin 0.6 (0.2-1.0) mg/dL AST 15 (10-42) IU/L ALT 10 (10-60) IU/L Alkaline Phosphatase 84 (42-121) IU/L B-Natriuretic Peptide 59 (0-100) pg/ml Total Protein 6.8 (6.7-8.2) g/dl Albumin 2.7 L (3.2-5.5) g/dl Globulin 4.1 Albumin/Globulin Ratio 0.66 [place]ALIA Results - Last 24 hrs: Microbiology 12/13/18 10:14 Influenza Type A Antigen Screen - Final Nasal, Unspecified NEGATIVE INFLUENZA A VIRUS AG Influenza Type B Antigen Screen - Final NEGATIVE INFLUENZA B VIRUS AG Med Orders - Current: Current Medications Acetaminophen (Tylenol) 650 mg PO Q4H PRN PRN Reason: Pain (mild 1-3 )/fever Amlodipine Besylate (Norvasc) 10 mg PO DAILY [facility] Last Admin: 12/14/18 08:35 Dose: 10 mg Aspirin (Halfprin) 81 mg PO DAILY [facility] Last Admin: 12/14/18 08:35 Dose: 81 mg Atorvastatin Calcium (Lipitor) 40 mg PO BEDTIME [facility] Budesonide (Pulmicort) 0.5 mg NEB BID@0700,2100 [facility] Last Admin: 12/14/18 08:13 Dose: 0.5 mg Clopidogrel Bisulfate (Plavix) 75 mg PO DAILY [facility] Last Admin: 12/14/18 08:35 Dose: 75 mg Diphenhydramine HCl (Benadryl) 25 mg PO BEDTIME [facility] Last Admin: 12/14/18 07:25 Dose: Not Given Docusate Sodium (Colace) 100 mg PO DAILY PRN PRN Reason: Constipation Escitalopram Oxalate (Lexapro) 10 mg PO DAILY [facility] Last Admin: 12/14/18 08:35 Dose: 10 mg Fluticasone Propionate (Flonase) 0 gm ALISIA BID [facility] Last Admin: 12/14/18 08:38 Dose: 1 spray Heparin Sodium (Porcine) (Heparin Sodium) 5,000 units SUBCUT Q8H [facility] Last Admin: 12/14/18 07:59 Dose: Not Given Ceftriaxone Sodium 2 gm/ (Sodium Chloride) 100 mls @ 200 mls/hr IV Q24H [facility] Last Infusion: 12/13/18 15:38 Dose: Infused Azithromycin 500 mg/ Sodium (Chloride) 250 mls @ 250 mls/hr IV Q24H [facility] Last Infusion: 12/13/18 16:38 Dose: Infused Lisinopril (Prinivil) 20 mg PO DAILY [facility] Last Admin: 12/14/18 08:35 Dose: 20 mg Metformin HCl (Glucophage) 500 mg PO DAILY@0800 [facility] Last Admin: 12/14/18 08:34 Dose: 500 mg Metoprolol Succinate (Toprol Xl) 50 mg PO DAILY [facility] Last Admin: 12/14/18 08:34 Dose: 50 mg Non-Formulary [place] Med [Combivent Respimat] 1 Puff) 1 puff INH BID PRN PRN Reason: Shortness of Breath Last Admin: 12/14/18 08:39 Dose: 1 puff Pantoprazole Sodium (Protonix) 40 mg PO DAILY@0600 [facility] Last Admin: 12/14/18 08:00 Dose: Not Given Patient's Own Medication Brovana 15 Mcg/2ml 1 each NEB BID@0700,2100 [facility] Last Admin: 12/14/18 08:13 Dose: 1 each Discontinued Medications Magnesium Sulfate 2 gm/ Premix 50 mls @ 25 mls/hr IV ONETIME ONE Stop: 12/13/18 16:47 Last Infusion: 12/13/18 18:26 Dose: Infused Metformin HCl (Glucophage) 500 mg PO ONETIME ONE Stop: 12/13/18 14:01 Last Admin: 12/13/18 14:01 Dose: 500 mg Non-Formulary Medication (Albuterol/Ipratropium [Combivent Respimat]) 1 puff INH ASDIRECTED PRN PRN Reason: Shortness of Breath - Exam Quality Assessment: Reports: DVT Prophylaxis. Denies: Supplemental Oxygen, Urine Catheter General: Reports: Alert, Oriented, Cooperative, No Acute Distress HEENT: Reports: Pupils Equal, Pupils Reactive, EOMI, Mucous Membr. Moist/[place] Neck: Reports: Supple, No JVD, No Thyromegaly Lungs: Reports: Clear to Auscultation, Normal Respiratory Effort Cardiovascular: Reports: Irregular Rhythm, Murmurs GI/Abdominal Exam: Normal Bowel Sounds, Soft, Non-Tender. No: Rigid, Rebound, Tender (Female) Exam: Deferred Rectal (Female) Exam: Deferred Extremities: Normal Inspection, Pedal Edema Skin: Reports: Warm, Dry, Intact Neurological: Reports: No New Focal Deficit Psy/Mental Status: Reports: Alert, Normal Affect, Normal Mood
[2018-12-14] MEDS ORDERED: atorvaSTATin 20 MG Tab PO SCH (21:00)
== END 2018-12-14 11:05 | disposition home or self-care (01) | DRG 54 ==
LOC: DL.ED 08:49 → DL.MS 11:21 → OBSVTOIN 13:07
PROVIDERS: ADMIT Internal Medicine Nephrology; ATTEND Internal Medicine Nephrology
DX: C79.31 Secondary malignant neoplasm of brain (principal); J18.1 Lobar pneumonia, unspecified organism; E87.1 Hypo-osmolality and hyponatremia; J90 Pleural effusion, not elsewhere classified; R53.1 Weakness; E11.9 Type 2 diabetes mellitus without complications; R41.82 Altered mental status, unspecified; Z66 Do not resuscitate; I10 Essential (primary) hypertension; E78.5 Hyperlipidemia, unspecified; Z90.49 Acquired absence of other specified parts of digestive tract; Z90.710 Acquired absence of both cervix and uterus; Z95.5 Presence of coronary angioplasty implant and graft; Z79.82 Long term (current) use of aspirin; Z79.899 Other long term (current) drug therapy; Z79.84 Long term (current) use of oral hypoglycemic drugs; E83.42 Hypomagnesemia; H54.7 Unspecified visual loss; I25.10 Atherosclerotic heart disease of native coronary artery without angina pectoris; I25.2 Old myocardial infarction; E78.00 Pure hypercholesterolemia, unspecified; K21.9 Gastro-esophageal reflux disease without esophagitis; D64.9 Anemia, unspecified; Z98.49 Cataract extraction status, unspecified eye; Z96.649 Presence of unspecified artificial hip joint; Z88.1 Allergy status to other antibiotic agents; Z91.040 Latex allergy status; Z88.5 Allergy status to narcotic agent; Z91.010 Allergy to peanuts; Z88.7 Allergy status to serum and vaccine; Z88.8 Allergy status to other drugs, medicaments and biological substances; Z91.048 Other nonmedicinal substance allergy status
CPT/HCPCS: 36415; 70450; 71046; 80048; 80053; 81003; 83735; 83880; 85025; 87804; 94640; 99285-25; A9270-GY; J0456; J0696; J1644; J3475; J7050

== ENCOUNTER 2018-12-29 05:30 | Emergency (ER) | payer MEDICARE ==
[2018-12-29 05:38] VITALS: BP 114/47
[2018-12-29 06:34] LABS: CHLORIDE,CL 93 mmol/L (101-111); SODIUM,NA 131 mmol/L (135-145)
--- NOTE | 2018-12-29 06:36 | EDM.PDOC ---
<Neal Rodriguez - Last Filed: 12/29/18 06:54> ED HPI GENERAL MEDICAL PROBLEM - General Chief Complaint: Respiratory Problem Stated Complaint: COUGH ISN'T GETTING BETTER. Time Seen by Provider: 12/29/18 05:35 Source of Information: Reports: Patient, Family, Old Records, RN History Limitations: Reports: No Limitations - History of Present Illness INITIAL COMMENTS - FREE TEXT/NARRATIVE: ED with daughter with c/o not feeling well unable to describe further. Cough sounding worse. 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 Originally started with oncology at [place] end of November, Recommendation for radiation as tumor reported to be pressing on bronchus. Due to distance and patient stamina did not want to go to [place] so now awaiting appointment in [place]. Daughter notes patient not sleeping more than 2 hours per night while up in chair. Patient noting orthopnea in bed. Poor appetite, not drinking much for fluid. No nausea or vomiting. Normal BM, No urinary c/o. No chest pain. Denies SOB with exertion or at rest. - Related Data Allergies Allergy/AdvReac Type Severity Reaction Status Date / Time adhesive tape Allergy Rash Verified 12/29/18 05:41 cefuroxime Allergy Abdominal Verified 12/29/18 05:41 Pain celecoxib [From Celebrex] Allergy Swollen Verified 12/29/18 05:41 Tongue cephalexin [From Keflex] Allergy Abdominal Verified 12/29/18 05:41 Pain cetirizine [From Zyrtec] Allergy Abdominal Verified 12/29/18 05:41 Pain fentanyl Allergy Itching Verified 12/29/18 05:41 latex Allergy Redness Verified 12/29/18 05:41 peanut Allergy Rash Verified 12/29/18 05:41 pneumococcal vaccine Allergy Abdominal Verified 12/29/18 05:41 [From Pneumovax 23] Pain rofecoxib [From Vioxx] Allergy Abdominal Verified 12/29/18 05:41 Pain strawberry Allergy Itching Verified 12/29/18 05:41 levofloxacin [From Levaquin] AdvReac Change Verified 12/29/18 05:41 Mental Status Home Meds: Home Meds Escitalopram [Lexapro] 10 mg PO DAILY 06/19/16 [History] Acetaminophen [Non-Aspirin] 325 - 650 mg PO Q6HR PRN 09/13/16 [History] Aspirin [Adult Low Dose Aspirin EC] 81 mg PO DAILY 09/13/16 [History] Clopidogrel [Plavix] 75 mg PO DAILY 09/13/16 [History] Metoprolol Succinate [Toprol XL] 50 mg PO DAILY 09/13/16 [History] amLODIPine [Norvasc] 10 mg PO DAILY 09/13/16 [History] metFORMIN HCl [Metformin HCl] 500 mg PO ACBREAKFAST 08/18/17 [History] Lisinopril 20 mg PO DAILY 06/09/18 [History] atorvaSTATin [Lipitor] 40 mg PO BEDTIME 06/09/18 [History] diphenhydrAMINE [Benadryl] 25 mg PO BEDTIME 06/09/18 [History] Albuterol/Ipratropium [Combivent Respimat] 1 puff INH BID PRN 12/13/18 [History] Arformoterol [Brovana] 2 ml INH BID 12/13/18 [History] Budesonide [Pulmicort] 0.5 mg IH BID 12/13/18 [History] Fluticasone Propionate [Flonase Allergy Relief] 1 spray ALISIA BID 12/13/18 [ History] Pantoprazole [ProTONIX] 40 mg PO DAILY 12/13/18 [History] Azithromycin [Zithromax] 250 mg PO DAILY #5 tab 12/14/18 [Rx] Furosemide [Lasix] 40 mg PO DAILY #30 tablet 12/14/18 [Rx] Past Medical History HEENT History: Reports: Hard of Hearing, Impaired Vision Other HEENT History: wears glasses Cardiovascular History: Reports: CAD, High Cholesterol, Hypertension, [place] Respiratory History: Reports: None Other Respiratory History: thorencentisis on 12/10/2018 Gastrointestinal History: Reports: GERD Genitourinary History: Reports: None SOUND ASSISTANT History: Reports: None Musculoskeletal History: Reports: None Neurological History: Reports: None Psychiatric History: Reports: None Endocrine/Metabolic History: Reports: Diabetes, Type II Hematologic History: Reports: Anemia, Blood Transfusion(s) Immunologic History: Reports: None Oncologic (Cancer) History: Reports: Lung Other Oncologic History: new diagnosis as of 12/13/18. Dermatologic History: Reports: None Other Dermatologic History: dionte to left posterior leg, dionte to left side of face covering left eye, left lip, and left sikhism. - Infectious Disease History Infectious Disease History: Reports: Chicken Pox, Measles, Mumps - Past Surgical History HEENT Surgical History: Reports: Cataract Surgery Cardiovascular Surgical History: Reports: Carotid Stents GI Surgical History: Reports: Appendectomy, Cholecystectomy Female Surgical History: Reports: Hysterectomy Musculoskeletal Surgical History: Reports: Hip Replacement Social & Family History - Family History Family Medical History: Noncontributory - Tobacco Use Smoking Status *Q: Never Smoker - Caffeine Use Caffeine Use: Reports: None - Recreational Drug Use Recreational Drug Use: No - Living Situation & Occupation Occupation: Retired ED EXAM, GENERAL - Physical Exam Exam: See Below Exam Limited By: No Limitations General Appearance: Alert, No Apparent Distress Eye Exam: Bilateral Eye: EOMI Ears: Normal External Exam, Normal TMs, Hearing Loss Nose: Normal Mucosa Throat/Mouth: Other (birthmark- bluish pigmentation to left side of face and deformity orf left upper lip) Head: Atraumatic, Normocephalic Neck: Normal Inspection, Full Range of Motion Respiratory/Chest: No Respiratory Distress, Decreased Breath Sounds (absent mid to base right, diminished left with few crackle. loose harsh cough, small whitish phlegm). No: Normal Breath Sounds Cardiovascular: Normal Peripheral Pulses, Regular Rate, Rhythm GI/Abdominal: Normal Bowel Sounds, Soft, Non-Tender Extremities: Pedal Edema (2-3+ to knees) Neurological: Alert, Oriented, Normal Cognition, Normal Gait Psychiatric: Flat Affect Skin Exam: Warm, Dry, Intact Course - Vital Signs Last Recorded V/S: Last Vital Signs Temp 36.4 C 12/29/18 05:33 Pulse 73 12/29/18 06:21 Resp 20 12/29/18 06:21 BP 114/47 L 12/29/18 05:33 Pulse Ox 89 L 12/29/18 06:21 - Orders/Labs/Meds Orders: Active Orders 24 hr Category Date Time Status EKG 12 Lead [EKG Documentation Completion] [RC] URGENT Care 12/29/18 05:58 Active RT Aerosol Therapy [RC] ASDIRECTED Care 12/29/18 07:33 Active CXR [Chest 2V] [CR] Urgent Exams 12/29/18 05:57 Taken CULTURE BLOOD [BC] Stat Lab 12/29/18 05:56 Ordered CULTURE BLOOD [BC] Stat Lab 12/29/18 06:00 Received CULTURE SPUTUM + SMEAR [RM] Stat Lab 12/29/18 05:56 Ordered Blood Culture x2 Reflex Set [OM.PC] Stat Oth 12/29/18 05:55 Ordered Code Status [Resuscitation Status] Stat Resus Stat 12/29/18 06:21 Ordered Labs: Laboratory Tests 12/29/18 12/29/18 12/29/18 Range/Units 06:00 06:00 06:00 WBC Cancelled RBC Cancelled Hgb Cancelled Hct Cancelled MCV Cancelled MCH Cancelled MCHC Cancelled Plt Count Cancelled Neut % (Auto) (42.2-75.2) % Lymph % (Auto) (20.5-50.1) % [place] % (Auto) (2-8) % Eos % (Auto) (1.0-3.0) % Baso % (Auto) (0.0-1.0) % Sodium 131 L (135-145) mmol/L Potassium 4.0 (3.6-5.0) mmol/L Chloride 93 L (101-111) mmol/L Carbon Dioxide 25.0 (21.0-31.0) mmol/L Anion Gap 17.0 BUN 25 H (7-18) mg/dL Creatinine 0.9 (0.6-1.3) mg/dL Est Cr Clr Drug Dosing 43.56 mL/min Estimated GFR (MDRD) 60 BUN/Creatinine Ratio 27.77 Glucose 154 H (74-105) mg/dL Lactic Acid 1.0 (0.5-2.2) mmol/L Calcium 8.5 (8.4-10.2) mg/dl Magnesium 1.4 L (1.8-2.5) mg/dL Total Bilirubin 0.4 (0.2-1.0) mg/dL AST 16 (10-42) IU/L ALT 11 (10-60) IU/L Alkaline Phosphatase 67 (42-121) IU/L Troponin I < 0.02 (0.00-0.02) ng/ml B-Natriuretic Peptide 58 (0-100) pg/ml Total Protein 6.0 L (6.7-8.2) g/dl Albumin 2.7 L (3.2-5.5) g/dl Globulin 3.3 Albumin/Globulin Ratio 0.82 12/29/18 Range/Units 06:00 WBC 10.0 RBC 4.36 Hgb 12.7 Hct 37.7 MCV 86.5 MCH 29.1 MCHC 33.7 Plt Count 509 H Neut % (Auto) 80.5 H (42.2-75.2) % Lymph % (Auto) 6.2 L (20.5-50.1) % [place] % (Auto) 6.3 (2-8) % Eos % (Auto) 6.4 H (1.0-3.0) % Baso % (Auto) 0.6 (0.0-1.0) % Sodium (135-145) mmol/L Potassium (3.6-5.0) mmol/L Chloride (101-111) mmol/L Carbon Dioxide (21.0-31.0) mmol/L Anion Gap BUN (7-18) mg/dL Creatinine (0.6-1.3) mg/dL Est Cr Clr Drug Dosing mL/min Estimated GFR (MDRD) BUN/Creatinine Ratio Glucose (74-105) mg/dL Lactic Acid (0.5-2.2) mmol/L Calcium (8.4-10.2) mg/dl Magnesium (1.8-2.5) mg/dL Total Bilirubin (0.2-1.0) mg/dL AST (10-42) IU/L ALT (10-60) IU/L Alkaline Phosphatase (42-121) IU/L Troponin I (0.00-0.02) ng/ml B-Natriuretic Peptide (0-100) pg/ml Total Protein (6.7-8.2) g/dl Albumin (3.2-5.5) g/dl Globulin Albumin/Globulin Ratio Meds: Medications Discontinued Medications Generic Name Dose Route Start Last Admin Trade Name Freq PRN Reason Stop Dose Admin Albuterol 2.5 mg 12/29/18 07:33 12/29/18 07:39 Proventil Neb Soln NEB 12/29/18 07:34 2.5 mg ONETIME ONE Administration - Radiology Interpretation Free Text/Narrative:: [facility] Final Radiology Report Call: [phone] assistance Online chat: [email or web address] Name: JULIO LLANOS Age: 83Years F Date: 12/29/2018 SSN: -- : [id number] Study: XR CHEST 2 VIEWS FRONTAL & LAT Requesting Physician: NEAL RODRIGUEZ Images: 2 Addl Studies: Provided Clinical History: Contrast: Contrast Medium: Contrast Amount: Contrast Method: CONFIDENTIALITY STATEMENT This report is intended only for use by the referring physician, and only in accordance with law. If you received this in error, call [phone]. Page 1 of 1 EXAM: XR Chest, 2 Views EXAM DATE/TIME: 12/29/2018 6:10 AM CLINICAL HISTORY: 83 years old, female; Signs and symptoms; Cough and other: Weakness-- recent dx lung CA TECHNIQUE: Imaging protocol: XR of the chest, 2 views. COMPARISON: CR Chest 2V 12/13/2018 9:57 AM FINDINGS: Lungs: Bilateral lower lung infiltrates Pleural space: Unremarkable. No pleural effusion. No pneumothorax. Heart/Mediastinum: Unremarkable. No cardiomegaly. Bones/joints: Unremarkable. IMPRESSION: 1. COPD 2. Bilateral lower lung infiltrates which appear worse in the prior study 3. Hiatal hernia Thank you for allowing us to participate in the care of your patient. Dictated and Authenticated by: Hernandez Holloway MD 12/29/2018 6:39 AM Central Time ([place] & [place] - Re-Assessments/Exams Free Text/Narrative Re-Assessment/Exam: 12/29/18 07:27 Dr Haydee Murdock accepting of patient in transfer. Tx via [facility] .Family here, findings discussed with patient and daughter. Departure - Departure Disposition: DC/Tfer to Acute Hospital 02 Condition: Undetermined Clinical Impression: Lung cancer metastatic to brain, Hypomagnesemia, Hypokalemia - Discharge Information *PRESCRIPTION DRUG MONITORING PROGRAM REVIEWED*: No *COPY OF PRESCRIPTION DRUG MONITORING REPORT IN PATIENT TESFAYE: No Forms: ED Department Discharge <Tip Maloney - Last Filed: 12/29/18 07:55> ED ROS GENERAL - Review of Systems Review Of Systems: ROS reveals no pertinent complaints other than HPI. Departure - Departure Time of Disposition: 07:55
[2018-12-29] MEDS ORDERED: Albuterol 0.083% 2.5 MG/3 ML Neb Soln NEB ONE (07:33)
== END 2018-12-29 07:56 ==
LOC: DL.ED 05:30
DX: C34.90 Malignant neoplasm of unspecified part of unspecified bronchus or lung (principal); C79.31 Secondary malignant neoplasm of brain; E83.42 Hypomagnesemia; E87.6 Hypokalemia; I25.10 Atherosclerotic heart disease of native coronary artery without angina pectoris; E78.00 Pure hypercholesterolemia, unspecified; I10 Essential (primary) hypertension; I25.2 Old myocardial infarction; K21.9 Gastro-esophageal reflux disease without esophagitis; E11.9 Type 2 diabetes mellitus without complications; Z88.8 Allergy status to other drugs, medicaments and biological substances; Z79.899 Other long term (current) drug therapy; Z79.82 Long term (current) use of aspirin; Z88.1 Allergy status to other antibiotic agents
CPT/HCPCS: 36415; 71046; 80053; 83605; 83735; 83880; 84484; 85025; 87040; 93005; 94640; 99285-25; J7613-GY

== ENCOUNTER 2019-01-05 11:10 | Emergency (ER) | payer MEDICARE ==
[2019-01-05 11:46] VITALS: BP 108/49
[2019-01-05 13:31] LABS: ANION GAP 18.1; CHLORIDE,CL 90 mmol/L (101-111); SODIUM,NA 128 mmol/L (135-145)
--- NOTE | 2019-01-05 14:23 | EDM.PDOC ---
ED HPI GENERAL MEDICAL PROBLEM - General Chief Complaint: Neurological Problem Stated Complaint: SEIZURE AT 10:15 WANT TO GET CHECKED Time Seen by Provider: 01/05/19 12:33 Source of Information: Reports: Patient, RN, RN Notes Reviewed History Limitations: Reports: No Limitations - History of Present Illness INITIAL COMMENTS - FREE TEXT/NARRATIVE: Patient presents to ER with complaint of seizure-like activity this morning. Daughter states patient had radiation on and Saturday. States the patient started drooling more out of the left side. Daughter states this morning the patient became non-verbal and unable to answer any questions, nodding head yes and no, facial twitching of left eye, and left cheek. Patient never unconscious. Denies pain anywhere. Onset: Today Duration: Constant Location: Reports: Generalized Severity: Moderate Improves with: Reports: None Worsens with: Reports: None Associated Symptoms: Reports: No Other Symptoms - Related Data Allergies Allergy/AdvReac Type Severity Reaction Status Date / Time adhesive tape Allergy Rash Verified 12/29/18 05:41 cefuroxime Allergy Abdominal Verified 12/29/18 05:41 Pain celecoxib [From Celebrex] Allergy Swollen Verified 01/05/19 11:46 Tongue cephalexin [From Keflex] Allergy Abdominal Verified 01/05/19 11:46 Pain cetirizine [From Zyrtec] Allergy Abdominal Verified 01/05/19 11:46 Pain fentanyl Allergy Itching Verified 01/05/19 11:46 latex Allergy Redness Verified 01/05/19 11:46 peanut Allergy Rash Verified 01/05/19 11:46 pneumococcal vaccine Allergy Abdominal Verified 01/05/19 11:46 [From Pneumovax 23] Pain rofecoxib [From Vioxx] Allergy Abdominal Verified 01/05/19 11:46 Pain strawberry Allergy Itching Verified 01/05/19 11:46 levofloxacin [From Levaquin] AdvReac Change Verified 01/05/19 11:46 Mental Status Home Meds: Home Meds Escitalopram [Lexapro] 10 mg PO DAILY 06/19/16 [History] Acetaminophen [Non-Aspirin] 325 - 650 mg PO Q6HR PRN 09/13/16 [History] Aspirin [Adult Low Dose Aspirin EC] 81 mg PO DAILY 09/13/16 [History] Clopidogrel [Plavix] 75 mg PO DAILY 09/13/16 [History] Metoprolol Succinate [Toprol XL] 75 mg PO DAILY 09/13/16 [History] amLODIPine [Norvasc] 10 mg PO DAILY 09/13/16 [History] metFORMIN HCl [Metformin HCl] 500 mg PO ASDIRECTED 08/18/17 [History] Lisinopril 20 mg PO DAILY 06/09/18 [History] atorvaSTATin [Lipitor] 40 mg PO BEDTIME 06/09/18 [History] diphenhydrAMINE [Benadryl] 25 mg PO BEDTIME 06/09/18 [History] Albuterol/Ipratropium [Combivent Respimat] 1 puff INH BID PRN 12/13/18 [History] Arformoterol [Brovana] 2 ml INH BID 12/13/18 [History] Budesonide [Pulmicort] 0.5 mg IH BID 12/13/18 [History] Fluticasone Propionate [Flonase Allergy Relief] 1 spray ALISIA BID 12/13/18 [ History] Pantoprazole [ProTONIX] 40 mg PO DAILY 12/13/18 [History] Furosemide [Lasix] 40 mg PO DAILY #30 tablet 12/14/18 [Rx] Benzonatate 100 mg PO ASDIRECTED PRN 01/05/19 [History] LORazepam [Ativan] 0.5 mg PO ASDIRECTED PRN 01/05/19 [History] Past Medical History HEENT History: Reports: Hard of Hearing, Impaired Vision Other HEENT History: wears glasses Cardiovascular History: Reports: CAD, High Cholesterol, Hypertension, [place] Respiratory History: Reports: None Other Respiratory History: thorencentisis on 12/10/2018 Gastrointestinal History: Reports: GERD Genitourinary History: Reports: None UNDERCOAT SPRAYER History: Reports: None Musculoskeletal History: Reports: None Neurological History: Reports: None Psychiatric History: Reports: None Endocrine/Metabolic History: Reports: Diabetes, Type II Hematologic History: Reports: Anemia, Blood Transfusion(s) Immunologic History: Reports: None Oncologic (Cancer) History: Reports: Lung Other Oncologic History: new diagnosis as of 12/13/18. Dermatologic History: Reports: None Other Dermatologic History: dionte to left posterior leg, dionte to left side of face covering left eye, left lip, and left yarsani. - Infectious Disease History Infectious Disease History: Reports: Chicken Pox, Measles, Mumps - Past Surgical History HEENT Surgical History: Reports: Cataract Surgery Cardiovascular Surgical History: Reports: Carotid Stents GI Surgical History: Reports: Appendectomy, Cholecystectomy Female Surgical History: Reports: Hysterectomy Musculoskeletal Surgical History: Reports: Hip Replacement Social & Family History - Family History Family Medical History: Noncontributory - Tobacco Use Smoking Status *Q: Never Smoker Second Hand Smoke Exposure: No - Caffeine Use Caffeine Use: Reports: Coffee - Recreational Drug Use Recreational Drug Use: No - Living Situation & Occupation Occupation: Retired ED ROS GENERAL - Review of Systems Review Of Systems: ROS reveals no pertinent complaints other than HPI. - Physical Exam Exam: See Below Exam Limited By: No Limitations General Appearance: Alert, WD/WN, No Apparent Distress Eye Exam: Bilateral Eye: EOMI, Normal Inspection, PERRL Ears: Normal External Exam, Normal Canal, Hearing Grossly Normal, Normal TMs Nose: Normal Inspection, Normal Mucosa, No Blood Throat/Mouth: Normal Inspection, Normal Lips, Normal Teeth, Normal Gums, Normal Oropharynx, Normal Voice, No Airway Compromise Head Exam: Other (facial birthmark left side of face.) Neck: Normal Inspection, Supple, Non-Tender, Full Range of Motion Respiratory/Chest: No Respiratory Distress, Lungs Clear, Normal Breath Sounds, No Accessory Muscle Use, Chest Non-Tender Cardiovascular: Normal Peripheral Pulses, Regular Rate, Rhythm, No Edema, No Gallop, No JVD, No Murmur, No Rub GI/Abdominal: Normal Bowel Sounds, Soft, Non-Tender, No Organomegaly, No Distention, No Abnormal Bruit, No Mass (Female) Exam: Deferred Rectal (Female) Exam: Deferred Neuro Exam (Abbreviated): Alert, Oriented, CN II-XII Intact, Normal Cognition, Normal Gait, Normal Reflexes, No Motor/Sensory Deficits Back Exam: Normal Inspection, Full Range of Motion, NT Extremities: Normal Inspection, Normal Range of Motion, Non-Tender, No Pedal Edema, Normal Capillary Refill Psychiatric: Normal Affect, Normal Mood Skin Exam: Other (left hemangioma upper lip. Birthmark left side of face. ) Course - Vital Signs Last Recorded V/S: Last Vital Signs Temp 97.9 F 01/05/19 11:40 Pulse 74 01/05/19 11:40 Resp 16 01/05/19 11:40 BP 108/49 L 01/05/19 11:40 Pulse Ox 92 L 01/05/19 11:40 - Orders/Labs/Meds Labs: Laboratory Tests 01/05/19 01/05/19 01/05/19 Range/Units 12:30 13:07 13:07 WBC 9.1 (5.0-10.0) 10^3/uL RBC 4.50 (4.2-5.4) 10^6/uL Hgb 12.9 (12.0-16.0) g/dL Hct 38.5 (37.0-47.0) % MCV 85.6 (80-100) fL MCH 28.7 (27.0-34.0) pg MCHC 33.5 (33.0-35.0) g/dL Plt Count 514 H (150-450) 10^3/uL Neut % (Auto) 80.9 H (42.2-75.2) % Lymph % (Auto) 5.8 L (20.5-50.1) % [place] % (Auto) 6.7 (2-8) % Eos % (Auto) 6.0 H (1.0-3.0) % Baso % (Auto) 0.6 (0.0-1.0) % Sodium 128 L (135-145) mmol/L Potassium 4.1 (3.6-5.0) mmol/L Chloride 90 L (101-111) mmol/L Carbon Dioxide 24.0 (21.0-31.0) mmol/L Anion Gap 18.1 BUN 13 (7-18) mg/dL Creatinine 0.8 (0.6-1.3) mg/dL Est Cr Clr Drug Dosing 49.00 mL/min Estimated GFR (MDRD) > 60 BUN/Creatinine Ratio 16.25 Glucose 118 H (74-105) mg/dL Calcium 8.4 (8.4-10.2) mg/dl Total Bilirubin 0.6 (0.2-1.0) mg/dL AST 17 (10-42) IU/L ALT 13 (10-60) IU/L Alkaline Phosphatase 76 (42-121) IU/L Total Protein 6.8 (6.7-8.2) g/dl Albumin 2.8 L (3.2-5.5) g/dl Globulin 4.0 Albumin/Globulin Ratio 0.70 Urine Color Yellow (YELLOW) Urine Appearance Clear (CLEAR) Urine pH 7.0 (5.0-9.0) Ur Specific [place] 1.015 (1.005-1.030) Urine Protein Negative (NEGATIVE) Urine Glucose (UA) Negative (NEGATIVE) Urine Ketones Negative (NEGATIVE) Urine Occult Blood Negative (NEGATIVE) Urine Nitrite Negative (NEGATIVE) Urine Bilirubin Negative (NEGATIVE) Urine Urobilinogen 0.2 (0.2-1.0) mg/dL Ur Leukocyte Esterase Negative (NEGATIVE) - Re-Assessments/Exams Free Text/Narrative Re-Assessment/Exam: 01/05/19 Discussed patient case with Dr. Warren, and Dr. Mix who state the patient needs a Neurology consult. Discussed this with the patient's daughter. The patient is scheduled for radiation as well as MRI of the head on Saturday in [place]. The patient's daughter states her mother is very tired and wants to rest. We both agree that sending the patient in an ambulance to [place] is not necessary at this time , and a MRI may not get done before the already scheduled time. Daughter states she is comfortable keeping the patient at home and taking her to [place] on Saturday. Daughter states if she has any further problems, she will bring her mother to the ER and she will then be transferred to [place]. Departure - Departure Time of Disposition: 14:22 Disposition: Home, Self-Care 01 Condition: Fair Clinical Impression: Seizure-like activity - Discharge Information *PRESCRIPTION DRUG MONITORING PROGRAM REVIEWED*: No *COPY OF PRESCRIPTION DRUG MONITORING REPORT IN PATIENT TESFAYE: No Instructions: Seizure, Adult, [id number] Referrals: PCP,None [Primary Care Provider] - Forms: ED Department Discharge Additional Instructions: Follow up with Dr. Warren Encourage fluids
== END 2019-01-05 14:33 | disposition home or self-care (01) ==
LOC: DL.ED 11:10
DX: R56.9 Unspecified convulsions (principal); E78.00 Pure hypercholesterolemia, unspecified; I25.10 Atherosclerotic heart disease of native coronary artery without angina pectoris; I10 Essential (primary) hypertension; I25.2 Old myocardial infarction; E11.9 Type 2 diabetes mellitus without complications; Z88.8 Allergy status to other drugs, medicaments and biological substances; Z79.899 Other long term (current) drug therapy; Z79.82 Long term (current) use of aspirin
CPT/HCPCS: 36415; 80053; 81003; 85025; 99283